=== PATIENT | male | born 1940 | race Caucasian/White ===

== ENCOUNTER 2017-01-12 11:00 | Inpatient (IN) ==
[2017-01-12 11:17] LABS: BASOPHILS # (AUTO) 0.1 K/uL (0-0.2); BASOPHILS % (AUTO) 1.8 % (0.0-3.0); EOSINOPHILS # (AUTO) 0.2 K/ul (0.0-0.7); EOSINOPHILS % (AUTO) 3.1 % (0.0-7.0); HEMATOCRIT 46.7 % (42.0-52.0); HEMOGLOBIN 16.2 g/dl (14.0-18.0); IMMATURE GRANULOCYTE % (AUTO) 0.3 % (0.0-5.0); LYMPHOCYTES # (AUTO) 1.3 K/uL (0.60-3.4); LYMPHOCYTES % (AUTO) 20.5 (10.0-50.0); MEAN CORPUSCULAR HEMOGLOBIN 29.6 pg (27.0-31.0); MEAN CORPUSCULAR HGB CONC 34.7 (31.8-35.4); MEAN CORPUSCULAR VOLUME 85.4 fl (80.0-94.0); MONOCYTES # (AUTO) 0.5 K/uL (0.4-2.0); MONOCYTES % (AUTO) 8.5 (0-10); NEUTROPHILS % (AUTO) 65.8; PLATELET COUNT 179 10^3/uL (140-440); RED BLOOD COUNT 5.47 10^6/ul (4.70-6.10); WHITE BLOOD COUNT 6.11 K/ul (4.2-10.2)
--- NOTE | 2017-01-12 11:35 | DI ---
EXAMINATION: AP chest radiograph. HISTORY: Chest pain COMPARISON: None available FINDINGS: No focal consolidation, pleural effusion or pneumothorax is identified. There is minimal left basila r atelectasis or scarring. The cardiomediastinal silhouette is within normal limits. There is calcified atherosclerotic plaque of the aorta. There is dextrocurvature of the thoracic spine. IMPRESSION: No acute cardiopulmonary findings.
--- NOTE | 2017-01-12 11:46 | CT ---
EXAM: CT of the head without contrast. HISTORY: Acute cerebrovascular accident. COMPARISON: 01/29/2011. TECHNIQUE: Noncontrast CT of the head. FINDINGS: No intracranial hemorrhage or mass effect is identified. There is mild to moderate prominence of the sulci. The ventricles are normal in size and configuration. Mild bicerebral periventricular, subc ortical and deep white matter hypodensities are again seen. No large area of moore white matter diffe rentiation loss is seen to suggest an acute infarct. Intracranial calcified atherosclerotic plaque i s seen The calvarium is intact. There is complete opacification of the right maxillary and right frontal si nuses. There is opacification of the right anterior ethmoid air cells. A left maxillary sinus muco us retention cyst or polyp is present. IMPRESSION: No evidence of an acute intracranial process. Atrophy, chronic small vessel ischemic changes and atherosclerosis. Complete opacification of the right maxillary sinus, right frontal sinus and right anterior ethmoid air cells.
[2017-01-12 11:53] LABS: ALANINE AMINOTRANSFERASE 70 U/L (12-78); ALBUMIN 3.7 g/dL (3.4-5.0); ALBUMIN/GLOBULIN RATIO 1.03; ALKALINE PHOSPHATASE 147 U/L (56-119); ANION GAP 11.5; ASPARTATE AMINO TRANSFERASE 36 U/L (15-37); BILIRUBIN,TOTAL 0.94 mg/dL (0.00-1.20); BLOOD UREA NITROGEN 12 mg/dL (7-18); BUN/CREATININE RATIO 11.42; CALCIUM 8.8 mg/dL (8.2-10.2); CARBON DIOXIDE 26 mmol/L (23-31); CHLORIDE 103 mmol/L (98-107); CREATINE KINASE 47 U/L; CREATININE 1.05 mg/dL (0.60-1.10); GLUCOSE 136 mg/dL (82-115); POTASSIUM 4.5 mmol/L (3.5-5.1); SODIUM 136 mmol/L (136-145); TOTAL PROTEIN 7.3 g/dL (5.8-8.1)
[2017-01-12] MEDS ORDERED: DECADRON 4 MG/ML SDV 4 MG in SODIUM CHLORIDE 50 ML IV STA (12:47)
[2017-01-12] MEDS ORDERED: DECADRON 4 MG/ML SDV IM STA (12:52)
--- NOTE | 2017-01-12 13:18 | ED.PDOC ---
General ED Provider: Dr. DAVE AVILES JR Chief Complaint: Stroke Stated Complaint: 2 weeks periods confusion--unsteady at times--drooping of rt lip and eye--lives alone --falls lately-- alert--clear, appropriate--moving all limbs...difficult to awaken this am-- dizzy-- back pain worsening--walking difficult[End]99.0 89 20 98% 189/78 12/10 Time Seen by Physician: 17:12 Mode of Arrival: Stretcher Information Source: Patient, Family Exam Limitations: No limitations, Dementia Primary Care Provider: TODD BIGGS Nursing and Triage Documentation Reviewed and Agree: No Review of Systems - Review Of Systems Constitutional: Reports: Fever, Malaise Eyes: Reports: Vision change, Inflammation Ears, Nose, Mouth, Throat: Reports: No symptoms Respiratory: Reports: No symptoms Cardiac: Reports: No symptoms GI: Reports: No symptoms : Reports: No symptoms Musculoskeletal: Reports: No symptoms Skin: Reports: No symptoms Neurological: Reports: Cognitive dysfunction Endocrine: Reports: No symptoms Hematologic/Lymphatic: Reports: No symptoms All Other Systems: Other Past Medical History - Past Medical History Endocrine: Reports: None Cardiovascular: Reports: CAD, Hypertension Respiratory: Reports: None Hematological: Reports: None Gastrointestinal: Reports: None Genitourinary: Reports: None Neuro/Psych: Reports: CVA Musculoskeletal: Reports: Arthritis Cancer: Reports: None - Surgical History General Surgical History: Reports: Stent ( cardiac) - Family History Family History: Reports: Unknown - Social History Smoking Status: Former smoker Hx Substance Use: No Alcohol Screening: None Physical Exam - Physical Exam Appearance: Well-appearing, Thin Pain Distress: Mild Eyes: JANIYA, EOMI, Conjunctiva clear ENT: Ears normal, Nose normal, Oropharynx normal Neck: Supple Respiratory: Airway patent, Breath sounds clear, Breath sounds equal, Respirations nonlabored Cardiovascular: RRR, Pulses normal, No rub, No murmur GI/: Soft, Nontender, No masses, Bowel sounds normal, No Organomegaly Musculoskeletal: Normal strength, ROM intact, No edema, No calf tenderness Skin: Warm, Dry, Normal color Neurological: CN Palsy (7th nerve face flat over forehead right facial droop) Critical Care Note - Critical Care Note Total Time (mins): 20 Course - Course Hematology/Chemistry: 01/12/17 11:13 01/12/17 11:13 Orders, Labs, Meds: Lab Review 01/12/17 11:13 WBC 6.11 RBC 5.47 Hgb 16.2 Hct 46.7 MCV 85.4 MCH 29.6 MCHC 34.7 RDW Coeff of Nelson 13.1 Plt Count 179 Immature Gran % (Auto) 0.3 Neut % (Auto) 65.8 Lymph % (Auto) 20.5 [place] % (Auto) 8.5 Eos % (Auto) 3.1 Baso % (Auto) 1.8 Immature Gran # (Auto) 0.0 Neut # 4.0 Lymph # 1.3 [place] # 0.5 Eos # 0.2 Baso # 0.1 D-Dimer 0.70 Sodium 136 Potassium 4.5 Chloride 103 Carbon Dioxide 26 Anion Gap 11.5 BUN 12 Creatinine 1.05 Estimated GFR (MDRD) 68.00 BUN/Creatinine Ratio 11.42 Glucose 136 H Calcium 8.8 Total Bilirubin 0.94 AST 36 ALT 70 Alkaline Phosphatase 147 H Total Creatine Kinase 47 Troponin I < 0.0100 B-Natriuretic Peptide 39 Total Protein 7.3 Albumin 3.7 Globulin 3.6 Albumin/Globulin Ratio 1.03 Orders Category Date Time Status EKG-(ED ONLY) Stat CARDIO 01/12/17 11:05 Completed B-TYPE NATRIURETIC PEPTIDE Stat LAB 01/12/17 11:13 Completed CBC W/ AUTO DIFF Stat LAB 01/12/17 11:13 Completed COMPREHENSIVE METABOLIC PANEL Stat LAB 01/12/17 11:13 Completed CREATINE KINASE Stat LAB 01/12/17 11:13 Completed D-DIMER Stat LAB 01/12/17 11:13 Completed TROPONIN I Stat LAB 01/12/17 11:13 Completed Dexamethasone 4 mg/ml Inj [Decadron 4 mg/ml Sdv] MEDS 01/12/17 12:52 Discontinued 4 mg IM ONCE STA Dexamethasone 4 mg/ml Inj [Decadron 4 mg/ml Sdv] 4 mg MEDS 01/12/17 12:47 Discontinued 0.9 % Sodium Chloride [Sodium Chloride] 50 ml IV ONCE CHEST, 1V AP ONLY Stat RADS 01/12/17 11:[address] HEAD W/O CONTRAST Stat RADS 01/12/17 11:05 Completed Medications Discontinued Medications Generic Name Dose Route Start Last Admin Trade Name Freq PRN Reason Stop Dose Admin Dexamethasone Sodium Phosphate 4 mg 01/12/17 12:52 01/12/17 13:01 Decadron 4 Mg/Ml Sdv IM 01/12/17 12:53 4 mg ONCE STA Administration Dexamethasone Sodium Phosphate 51 mls @ 75 mls/hr 01/12/17 12:47 01/12/17 13: 11 4 mg/ Sodium Chloride IV 01/12/17 13:28 Not Given ONCE STA Vital Signs: Temp Pulse Resp BP Pulse Ox 01/12/17 11:01 99 F 89 20 189/78 H 98 Departure - Departure Time of Disposition: 13:00 Disposition: ADMITTED INPATIENT Discharge Problem: Mcneil's palsy Sinusitis Qualifiers: Sinusitis location: pansinusitis Chronicity: acute Recurrence: not specified as recurrent Qualifier Code: (J01.40) Acute pansinusitis, unspecified Condition: Stable Pt referred to PMD for follow-up: Yes (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
[2017-01-12] MEDS ORDERED: ROCEPHIN 1 GM in SODIUM CHLORIDE 100 ML IV STA (13:31)
[2017-01-12 14:58] VITALS: BMI 30.3
[2017-01-12] MEDS: SODIUM CHLORIDE 1,000 ML IV SCH (15:29)
[2017-01-12] MEDS: ARICEPT PO SCH (15:43)
[2017-01-12] MEDS: CLARITIN PO SCH (15:43)
[2017-01-12] MEDS: ZESTRIL PO SCH (15:43)
[2017-01-12] MEDS: ROCEPHIN 1 GM in SODIUM CHLORIDE 100 ML IV SCH (16:46)
[2017-01-12] MEDS: TOBREX 0.3% OP SCH ×2 (16:46→20:17)
--- NOTE | 2017-01-12 17:13 | US ---
EXAM: Carotid ultrasound HISTORY: Right-sided facial drooping, confusion, hypertension COMPARISON: None TECHNIQUE: Carotid ultrasound was performed using moore scale, color, and Doppler imaging was perfor med. FINDINGS: Right carotid: There is mild atherosclerotic plaque with visual estimate of narrowing less than 50% . Peak systolic velocity measurement in the right internal carotid artery is 1.5 meters per second. End-diastolic velocity measurement in the right internal carotid artery is 0.1 meters per second. Right internal to common carotid artery peak systolic velocity ratio is 1.5. Flow in the right frida tebral artery is antegrade. Left carotid: There is mild atherosclerotic plaque with visual estimate of narrowing less than 50%. Peak systolic velocity measurement in the left internal carotid artery is 1.2 meters per second. End-diastolic velocity measurement in the left internal carotid artery is 0.2 meters per second. Le ft internal to common carotid artery peak systolic velocity ratio measures 1.1. Flow in the left ve rtebral artery is antegrade. IMPRESSION: 1. Right internal carotid: Probably mild (less than 50%) stenosis. Peak systolic velocity correspond s with low moderate (50 - 69%) stenosis; however, visual estimate of narrowing is less than 50% 2. Left internal carotid: Mild (less than 50%) stenosis
[2017-01-12] MEDS ORDERED: CATAPRES PO STA (18:19)
[2017-01-12] MEDS ORDERED: CATAPRES PO PRN (18:20)
[2017-01-12] MEDS: HYDROCORTISONE 1% CREAM TP SCH (20:17)
[2017-01-13 05:55] LABS: BASOPHILS # (AUTO) 0.1 K/uL (0-0.2); BASOPHILS % (AUTO) 1.2 % (0.0-3.0); EOSINOPHILS # (AUTO) 0.2 K/ul (0.0-0.7); HEMOGLOBIN 14.9 g/dl (14.0-18.0); IMMATURE GRANULOCYTE % (AUTO) 0.5 % (0.0-5.0); LYMPHOCYTES # (AUTO) 2.1 K/uL (0.60-3.4); LYMPHOCYTES % (AUTO) 25.7 (10.0-50.0); MEAN CORPUSCULAR HEMOGLOBIN 29.7 pg (27.0-31.0); MEAN CORPUSCULAR HGB CONC 34.7 (31.8-35.4); MEAN CORPUSCULAR VOLUME 85.7 fl (80.0-94.0); MONOCYTES # (AUTO) 0.7 K/uL (0.4-2.0); MONOCYTES % (AUTO) 8.7 (0-10); NEUTROPHILS % (AUTO) 61.9; PLATELET COUNT 183 10^3/uL (140-440); RED BLOOD COUNT 5.02 10^6/ul (4.70-6.10); WHITE BLOOD COUNT 8.03 K/ul (4.2-10.2)
[2017-01-13 06:13] LABS: ALBUMIN 3.2 g/dL (3.4-5.0); ALBUMIN/GLOBULIN RATIO 1.03; ANION GAP 7.4; BILIRUBIN,TOTAL 0.8 mg/dL (0.00-1.20); BUN/CREATININE RATIO 13.95; CALCIUM 8.5 mg/dL (8.2-10.2); CREATININE 0.86 mg/dL (0.60-1.10); POTASSIUM 4.4 mmol/L (3.5-5.1); TOTAL PROTEIN 6.3 g/dL (5.8-8.1)
[2017-01-13] MEDS: SODIUM CHLORIDE 1,000 ML IV SCH ×2 (07:02→23:22)
--- NOTE | 2017-01-13 08:44 | HP ---
DATE OF SERVICE: 01/12/17 REASON FOR HOSPITALIZATION: Weakness and the facial droopiness. HISTORY OF PRESENT ILLNESS: The patient is a 76 year old male who lives by himself at home and the family checks on him. For the last one week he is becoming more weak, tired, slurry and the confusion not by himself and more frequent falls and today when family members went and saw the patient, patient has the right facial droopiness and the right eye was red. They were worried about the stroke and brought the patient to the emergency room. The patient was seen by Dr. Soriano in the emergency room. Blood pressure 189/78. Labs were normal, D-dimer and regular blood work. Sugars were 136. CT of the head did not show any stroke, atrophy, chronic small vessel and completion of the right maxillary sinus and right frontal sinusitis and right anterior ethmoid sinusitis. Chest x-ray was done and no acute pulmonary process. At that time the patient is admitted to the hospital with the right sided [place] Palsy, acute sinusitis and otitis media on the right side, failure to thrive at home and worsening Alzheimer's dementia. REVIEW OF SYSTEMS: CONSTITUTIONAL: No night sweats. Weakness and tiredness. No fever or chills. HEENT: Eyes: No visual changes. No eye pain. No eye discharge. ENT: Right ear pain. No runny nose. No epistaxis. No sinus pain. No sore throat. No odynophagia. No ear pain. No congestion. RESPIRATORY: No cough, no congestion. No hemoptysis. CARDIOVASCULAR: No angina symptoms. No CHF symptoms. No atypical chest pain for CAD. No palpitations. No shortness of breath. GASTROINTESTINAL: No abdominal pain. No nausea or vomiting. No diarrhea or constipation. No hematemesis. No hematochezia. GENITOURINARY: No urgency. No frequency. No dysuria. No hematuria. No obstructive symptoms. No discharge. No pain. No significant abnormal bleeding. MUSCULOSKELETAL: No musculoskeletal pain. No joint swelling. No arthritis. Lower back pain, chronic NEUROLOGICAL: No headache. No neck pain. No syncope. No seizures. No dizziness. More forgetfulness. PSYCHIATRIC: Not anxious. No depression. No suicidal thoughts. No homicidal thoughts. SKIN: No rash. No lesions. No wounds. ENDOCRINE: No unexplained weight loss. No weight gain. HEMATOLOGIC/LYMPHATIC: No anemia. No purpura. No petechiae. No prolonged or excessive bleeding. No palpable lymph nodes. PERSONAL/FAMILY/SOCIAL HISTORY: The patient does live by himself. Smokes. No alcohol and no drugs. Family history is not significant PAST MEDICAL/SURGICAL PROBLEMS: Hypertension Alzheimer's dementia Chronic back pains, never had any surgery Coronary artery disease Status post stent CVA Diabetes mellitus, type 2 Diet control MEDICATIONS: No home medications. ALLERGIES: No known allergies PHYSICAL EXAMINATION: VITAL SIGNS: Blood pressure 189/78, respiratory rate 20, heart rate 89, temperature 99.0 and saturation 98% on the room air. HEENT: Head normocephalic, atraumatic. Right facial droop. Eyes: Right lower eye is drooped and red. Reactive to light. Extraocular muscles are intact. Pupils are equal, round and reactive to light and accommodation. Ears: Right tegmen is red and bulged tympanic membrane. Frontal sinus tenderness. No lesions. Nose appeared normal. Throat: No exudate or erythema. Mucosa dry. NECK: Supple. No JVD, no carotid bruit. No lymphadenopathy or thyromegaly. LUNGS: Bilateral entry is decreased and clear to auscultation. Percussion note normal. Chest symmetrical. HEART: S1, S2, no S3. No murmurs. No cyanosis or clubbing. No ascites. Pulses: Dorsalis pedis and posterior tibial pulses +1 to +2 both sides. ABDOMEN: Soft. Nontender. Bowel sounds active. No CVA tenderness. No mass felt. EXTREMITIES: No edema. Full range of motion of all extremities, equal. NEUROLOGIC: No focal deficit. Cranial nerves II through XII are grossly intact. No headache, no double vision or headache. The patient is awake, alert and oriented times three. SKIN: Not dry. Intact. Turgor - normal. LYMPHATIC: No palpable lymph nodes/no lymphedema. MUSCULOSKELETAL: Normal joints with no swelling. Muscle tone is normal. LABS: Normal except for the glucose is 136. Alkaline phosphatase is 147. ASSESSMENT: 1. Right facial droop, Mcneil's Palsy 2. Acute sinusitis and otitis media 3. Hypertension 4. Alzheimer's Dementia 5. Failure to thrive. PLAN: 1. Admit patient to the regular floor 2. CBC and CMP today and daily 3. Cardiac enzymes and Troponin 4. Rocephin 1 gram daily 5. Lisinopril 20mg PO daily 6. Aricept 10mg PO daily 7. Carotid Ultrasounds 8. MRI of the brain Will follow the patient in daily rounds. TIME SPENT: More than 55 minutes. MTDD
[2017-01-13] MEDS ORDERED: DECADRON 4 MG/ML SDV IM STA (09:04)
[2017-01-13] MEDS ORDERED: ATIVAN IVP STA (09:05)
[2017-01-13] MEDS ORDERED: DEMEROL 25 MG/ML SYRINGE IVP STA (09:21)
[2017-01-13] MEDS: TOBREX 0.3% OP SCH ×3 (09:44→20:45)
[2017-01-13] MEDS: CLARITIN PO SCH (09:45)
[2017-01-13] MEDS: ARICEPT PO SCH (09:45)
[2017-01-13] MEDS: ZESTRIL PO SCH (09:46)
--- NOTE | 2017-01-13 10:04 | PCM.PROG ---
Attending Provider: ATTENDING PROVIDER: Dr. JUDITH JAFFE DATE OF SERVICE: 01/13/17 SUBJECTIVE: This 76 year old WHITE/ M was hospitalized 01/12/17. The patient is admitted with Mcneil's Palsy, worsening dementia, failure to thrive and hypertension. The patient is complaining of lower back pain. REVIEW OF SYSTEMS: CONSTITUTIONAL: No fever, no chills. ENDOCRINE: No weight loss or weight gain. HEENT: Sinus drainage; right eye redness is better. No sore throat. CVS: No angina symptoms. No CHF symptoms. No palpitations. No atypical chest pain for CAD. No shortness of breath. RESPIRATORY: No cough, no hemoptysis. GI: No melena. No abdominal pain. No nausea, no vomiting. : No hematuria. No polyuria. SKIN: No rash. No wounds. MUSCULOSKELETAL: No pain. 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 No headache. No double vision. PSYCHIATRIC: Not anxious; no depression. No suicidal thoughts. No homicidal thoughts. PHYSICAL EXAMINATION: GENERAL: Lying in bed in no distress. VITAL SIGNS: Temperature 97.4 F, Pulse 55, Respiratory Rate 16, BP 132/78, Pulse Ox 97% HEENT: Right facial droop/weakness is present. Mucosa is dry, pallor positive. Hard of hearing. NECK: No JVP, no carotid bruit. No lymphadenopathy. CARDIAC: S1, S2, no S3. No murmur, gallop or regurgitation. LUNGS: Clear to auscultation. ABDOMEN: Soft, non-tender. Bowel sounds active. No rigidity, guarding or CVA tenderness. EXTREMITIES: No clubbing, cyanosis or edema. NEUROLOGIC: Awake, alert and oriented x3. No neurological deficit. Right facial droop is present. LYMPHATIC: No palpable lymph nodes SKIN: Not dry. Intact. MUSCULOSKELETAL: No joint swelling. LAB REVIEW: 01/13/17 05:15 01/13/17 05:15 01/13/17 05:15: WBC 8.03, RBC 5.02, Hgb 14.9, Hct 43.0, MCV 85.7, MCH 29.7, MCHC 34.7, RDW Coeff of Nelson 13.0, Plt Count 183, Immature Gran % (Auto) 0.5, Neut % (Auto) 61.9, Lymph % (Auto) 25.7, [place] % (Auto) 8.7, Eos % (Auto) 2.0, Baso % (Auto) 1.2, Immature Gran # (Auto) 0.0, Neut # 5.0, Lymph # 2.1, [place] # 0.7, Eos # 0.2, Baso # 0.1, Sodium 135 L, Potassium 4.4, Chloride 106, Carbon Dioxide 26, Anion Gap 7.4, BUN 12, Creatinine 0.86, Estimated GFR (MDRD) 86.00, BUN/Creatinine Ratio 13.95, Glucose 107, Calcium 8.5, Total Bilirubin 0.80, AST 26, ALT 55, Alkaline Phosphatase 120 H D, Total Protein 6.3, Albumin 3.2 L, Globulin 3.1, Albumin/Globulin Ratio 1.03 ASSESSMENT: 1. Mcneil's Palsy 2. Otitiis media 3. Acute frontal sinusitis right side 4. Hard of hearing 5. Lower back pain 6. Alzheimer's dementia 7. Hypertension PLAN: 1. 1 cc Decadron today 2. Continue Rocephin 3. PT/OT evaluate and treat 4. CT scan of the lumbar spine 5. Demerol 25 mg IV 6. Ativan 0.5 mg IV now Plan and coordination of the patient's care discussed in the presence of Mechanical Insulator and nurse. CONDITION: Stable SCRIBED BY: ALBERT ANDREWS Member Service Representative scribed while in presence of service performed by Dr. JUDITH JAFFE on 01/13/17 (1729)
--- NOTE | 2017-01-13 10:05 | RS.OTINEVL ---
Subjective - Patient information Date of Evaluation: 01/13/17 Date of Arrival on Unit: 01/12/17 Admitted From:: Home Usual Living Arrangement: Alone Living Arrangement Comments: Pt lives alone. Daughters brought him to the ER with a Rollator walker. Pt takes a chair bath due to not being able to get on and off the transfer bath bench. Pt is maximum assist for BLE dressing. Home Environment: House, Stairs (few) Medical History: Hypertension, CVA/TIA, Dementia, Arthritis Medical History Comments:: 2 CVA's. Last one in January 2011. 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 Pt was able to transfer in and out of car. Pt used a rollator walker. Current Level of Function: Partially Dependent Current Equipment Used at Home: rollator Interventions - Objective Patient Orientation: Person, Place, Situation Current Interventions: IV's Observation: Pt has Right side weakness a facial droop. 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 Patient presents with extra wide gait pattern at times. Pt is flexed at hips when walking. Interventions - ROM Right Upper Extremity AROM: WFL's Left Upper Extremity AROM: WFL's - Strength Right Upper Extremity Strength: Mild Weakness Left Upper Extremity Strength: Mild Weakness - Sensation Right Upper Extremity Sensation: Intact/Normal Left Upper Extremity Sensation: Intact/Normal Balance - Sitting Balance Static Sitting Balance: Good Dynamic Sitting Balance: Good - Standing Balance Static Standing Balance: Fair Dynamic Standing Balance: Poor - Comments Balance Assessment Comments: Patient has difficult standing up straight. ADL Skills - Self Feeding Self Feeding: Independent - Grooming Grooming: Min Assist - Bathing Bathing UE: Mod Assist Bathing LE: Max Assist - Dressing Dressing UE: CGA Dressing LE: Max Assist, 1 person assist - Toilet Management Toileting Management: Mod Assist, 2 person assist Functional Mobility - Bed Mobility Rolling R/L: Independent Scooting: Independent Supine to Sit: Mod Assist Sit to Supine: CGA - Transfers Sit to Stand: Mod Assist, 2 person assist Stand to Sit: Mod Assist, 2 person assist Stand Pivot Transfers: Mod Assist, 2 person assist - Ambulation Weight Bearing Status: FWB Assistive Device Used: Rollator Assistance needed with Ambulation: Mod Assist, 2 person assist - Safety Awareness Safety Awareness: Poor Additional Treatment Performed - Additional units charged ADL: 15 - Time with patient Total treatment time: 30 Activities Patient Interests:: Watching Television Patient Education Patient Education: Education of diagnosis, Home Safety, Education of Plan of Care Teaching Recipient: Patient, Family Teaching Methods: Discussion Assessment Problem List:: Decreased level of function, Requires training/education, Decreased safety/Risk of falls, Weakness, Pain limits previous level of function Rehab Potential: Good Further Therapy Indicated?: Yes Short Term Goals - Goals GOAL 1: Patient to increase functional transfers to CGA with rollator walker. Goal to be met by: 01/20/17 GOAL 2: Pt to increase RUE strength to 4/5 Goal to be met by: 01/20/17 GOAL 3: Pt to increase independence of LB dressing to minimal assistance. Goal to be met by: 01/20/17 Oven Operator Automatic Goals GOAL 1: Pt to increase Functional transfers with Rollator walker to be Mod-I Goal to be met by: 01/27/17 GOAL 2: Pt to increase RUE strength to 4+/5. Goal to be met by: 01/27/17 GOAL 3: Pt to be independent with ADLS and home exercise program Goal to be met by: 01/27/17 Plan Plan of Care: Therapeutic EX, Neuromuscular Re-Educ, Therapeutic Activity, Self- Care/Home Management Frequency of Treatment: 1-2 X day, as tolerated Duration of Treatment: 2 Weeks Anticipated Discharge Destination: Home
[2017-01-13] MEDS: ROCEPHIN 1 GM in SODIUM CHLORIDE 100 ML IV SCH (10:44)
[2017-01-13] MEDS: HYDROCORTISONE 1% CREAM TP SCH ×2 (10:45→20:46)
--- NOTE | 2017-01-13 11:22 | CT ---
EXAM: Noncontrast CT of the lumbar spine HISTORY: Back pain, falls recently COMPARISON: 12/29/2010 radiographs TECHNIQUE: Noncontrast CT of the lumbar spine FINDINGS: The lumbar vertebral bodies are normal in height. There is mild levocurvature of the lumbar spine. No lumbar spine fractures are identified. There is 1 mm of posterior listhesis at the T12-L1 throug h L3-L4 levels. A T12 vertebral body hemangioma is present. There is partial osseous fusion of L5 and S1. There is moderate disc height loss at L4-L5 and mild disc height loss at the other lumbar l evels. Multilevel anterior osteophyte formation is present. Atherosclerotic calcifications are pre sent. T12-L1: Minimal disc bulge. Mild to moderate left facet hypertrophy. No foraminal or spinal canal s tenosis. L1-L2: Minimal disc bulge. Moderate facet and ligamentum flavum hypertrophy. Moderate bilateral f oraminal stenosis. Mild to moderate spinal canal stenosis. L2-L3: Diffuse disc bulge. Moderate facet and ligamentum flavum hypertrophy. Moderate to severe r ight and moderate left foraminal stenosis. Moderate spinal canal stenosis. L3-L4: Diffuse disc bulge. Moderate to severe right and moderate left facet hypertrophy. Mild liga mentum flavum thickening. Moderate to severe bilateral foraminal stenosis. Moderate to severe spin al canal stenosis. L4-L5: Diffuse disc osteophyte complex. Moderate facet and ligamentum flavum hypertrophy. Moderate to severe right and severe left foraminal stenosis. Mild to moderate spinal canal stenosis. L5-S1: Diffuse disc osteophyte complex. Moderate facet hypertrophy, right greater than left. Mini mal right and mild left foraminal stenosis. Minimal spinal canal stenosis. IMPRESSION: No acute osseous abnormality. Moderate multilevel degenerative disc disease and facet arthropathy. Multilevel foraminal stenosis as detailed above. Moderate to severe spinal canal stenosis at L3-L4. Moderate spinal canal stenosis at L2-L3. Mild t o moderate spinal canal stenosis at L1-L2 and L4-L5. MRI could be considered for more sensitive evaluation if clinically indicated.
--- NOTE | 2017-01-13 11:51 | MRI ---
EXAM: MRI brain without IV contrast. DATE: 01/13/2017. HISTORY: Confusion, right side facial drooping, hypertension. TECHNIQUE: Sagittal T1W, axial T2W, axial FLAIR, axial T1W, axial DWI, and coronal T2W GRE sequence s of the brain were obtained using 1.2 Bobbi magnet. No IV contrast. COMPARISON: CT head 01/12/2017. MRI brain 02 October 2009. FINDINGS: The ventricles are normal in size and configuration. Many cerebral sulci and cerebellar sulci are enlarged due to atrophy. No midline shift, mass effect or abnormal extra-axial fluid namrata ection is apparent. Areas of DWI hyperintensity within the anterior inferior aspect of the right ce rebellum along the outer cortex are suspicious for acute infarct. A 3 mm diameter, DWI B 1000 slight ly bright, ADC map bright focus on the axial image #16 is not consistent with acute infarct. No acut e hemorrhage or neoplasm is identified. Small, confluent rim of T2W/FLAIR hyperintensity is observe d in the white matter abutting each lateral ventricle. Small number of other 2-5 mm, T2W/FLAIR brig ht foci are scattered within the ch radiata and subcortical white matter bilaterally. Prominent Virchow-Imtiaz spaces are observed within each basal ganglia. Old left 2 mm lacunar infarct is seen within the left frontal ch radiata. A 4.7 mm diameter, T2W bright, T1W dark focus in the left paramidline midbrain/pontine junction is consistent with an old infarct. The moore - white matter di fferentiation is normal. Areas of T2W GRE dark signal along the falx cerebrum superiorly correspond with calcifications on the recent CT scan. The 7th/8th cranial nerve complexes, cerebellopontine a ngles, and visible cervical spinal cord are normal. There is no cerebellar tonsillar ectopia. The pituitary gland is small in size , with CSF filling part of the pituitary fossa. Corpus callosum is normal in size and configuration. Vertebrobasilar system is tortuous. Flow voids are present in t he major intracranial arteries and in the dural venous sinuses. No aneurysm, AVM or dural venous si nus thrombosis is apparent. No orbit abnormality is identified. The mastoid air cells are unremark able. There is total opacification of the right maxillary sinus, several anterior right ethmoid air cells and the right frontoethmoidal recess. Small retention cyst (14 mm) is detected in the anterio r inferior left maxillary sinus. No neck mass or lymphadenopathy is detected. No calvarial neoplasm or acute fracture is evident. C1-2 arthritis is noted on sagittal sequence. IMPRESSIONS: 1. Acute, non-hemorrhagic right cerebellar infarct. 2. 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 3. No acute hemorrhage, neoplasm or hydrocephalus. 4. Mild cerebral small vessel disease. 5. Mild cerebral and cerebellar atrophy. 6. Small pituitary gland. Critical result: Report called to nguyen nurse at 1141 hrs, 01/13/2017. The nurses indicated she will inform the ordering physician of the findings.
--- NOTE | 2017-01-13 15:11 | RS.PTINEVL ---
Subjective - Patient information Date of Evaluation: 01/13/17 Date of Arrival on Unit: 01/12/17 Admitted From:: Emergency Dept Usual Living Arrangement: Alone Home Environment: House, Stairs (few) (to get into home) Medical History: Hypertension, CVA/TIA (X2, most recent 2010), Arthritis LATEX ALLERGY?: No Subjective Information/ Patient Comments:: Patient reports his back does not hurt too bad. States his eye is a little better. Family states he reports a lot of back pain at home, and he is not telling staff when he hurts. He uses a rollator at home. - Level of function Prior to this admission, the patient could do the following:: Independent Selfcare, Independent ADL's, Independent Ambulation, Participated in Social Activities Outside home Current Level of Function: Partially Dependent Current Equipment Used at Home: rollator Interventions - Objective Patient Orientation: Person, Place, Time, Situation Current Interventions: IV's Range of Motion - ROM Comments:: Patient demonstrates forward flexed spine and hips. Demonstrates tight hip flexors and ER's bilaterally. Muscle Strength - Muscle Strength Right Lower Extremity Strength: Mild Weakness Left Lower Extremity Strength: Mild Weakness Balance - Sitting Balance and Reactions Static Sitting Balance: Good Dynamic Sitting Balance: Fair - Standing Balance and Reactions Static Standing Balance: Good (-) Dynamic Standing Balance: Fair (+) Functional Mobility - Bed Mobility Supine to Sit: Min Assist, 2 person assist, Verbal Cues, Tactile Cues Sit to Supine: Min Assist, 2 person assist, Verbal Cues, Tactile Cues - Transfers Sit to Stand: Mod Assist, 1 person assist Stand to Sit: Min Assist, Mod Assist, 2 person assist Stand Pivot Transfers: Min Assist, Mod Assist, 2 person assist Comments:: To stand up, patient crosses left foot in behind the right and uses arms to push himself up. - Safety Awareness Safety Awareness: Poor Ambulation - Ambulation Weight Bearing Status: FWB Assistive Device Used: Rollator Distance: 100 feet Assistance needed with Ambulation: Min Assist, 2 person assist, Verbal Cues, Tactile Cues Gait Deviations: Narrow Based gait, Shuffling gait, Lacks step continuity Factors Affecting Ambulation: Decreased Balance, Weakness, Decreased ROM, Decreased Safety, Cognitive Status Treatment time - Time with patient Total treatment time: 17 (mins) Assessment - Assessment Problem List:: Decreased level of function, Requires training/education, Decreased safety/Risk of falls, Weakness, Cognitive status limits abilities Rehab Potential: Good Further Therapy Indicated?: Yes Short Term Goals GOAL #1: Supine to sit with CGA of one. Goal to be met by: 01/16/17 GOAL #2: Sit to stand with CGA of one. Goal to be met by: 01/16/17 GOAL #3: Ambulation with consistent foot clearance with rollator and CGA of 1. Goal to be met by: 01/16/17 [facility]cc Goals GOAL #1: All bed mobility independent. Goal to be met by: 01/19/17 GOAL #2: All transfers independent with good safety. Goal to be met by: 01/19/17 GOAL #3: Amb. with rollator household distances with good safety, Independent. Goal to be met by: 01/19/17 Plan Plan of Care: Therapeutic EX, Neuromuscular Re-Educ, Therapeutic Activity, Self- Care/Home Management Frequency of Treatment: 1-2 X day, as tolerated Duration of Treatment: 4-5 days Anticipated Discharge Destination: Home
--- NOTE | 2017-01-13 18:58 | CT ---
EXAM: CTA of the neck was performed with contrast. The intracranial circulation was also included i n the imaging volume and is described below. TECHNIQUE: Helical axial CTA of the neck was performed with contrast with multiplanar reconstructio ns and separate work station 3-D renderings. COMPARISON: Brain MRI from same day HISTORY: Right cerebellar stroke FINDINGS: There is no acute soft tissue abnormality. There are no neck masses or pathologic lymph no hollie. The thyroid gland is unremarkable. The lung apices and upper mediastinum are normal. There is e vidence of old granulomatous disease. There is noted to be complete opacification of the maxillary s inus on the right side. The visualized intracranial contents are unremarkable. The previously note d right cerebellar stroke as not visible on the CT. Aorta: The visualized portion of the aorta is normal with normal takeoff of the great vessels. Ther e is very extensive calcific atherosclerosis noted however. Right carotid artery: The origin of the right carotid artery off of the brachiocephalic is widely p atent. The right common carotid artery as well as the right carotid bifurcation and the cervical ri ght internal carotid artery are all widely patent. There is trace non stenotic calcific atherosclero sis of the right carotid bifurcation. There is no evidence for aneurysm or focal stenosis or dissec tion. Right vertebral artery: There does appear to be a modest narrowing of the origin of the right verte bral artery. The course of the right vertebral artery in the neck is normal with no focal stenosis or dissection or aneurysm. Left carotid artery: The origin of the left carotid artery off of the aortic arch is widely patent. The left common carotid artery in the neck is widely patent as is the carotid bifurcation as well as the cervical portion of the left internal carotid artery. There is no evidence for dissection or focal stenosis or aneurysm. Left vertebral artery: The origin of the left vertebral artery off of the left subclavian artery is widely patent. The course of the left vertebral artery in the neck is also unremarkable with no fo sridevi stenosis or aneurysm or dissection. The right vertebral artery is dominant. NECK CTA IMPRESSION: 1. Trace non stenotic calcific atherosclerosis of the right carotid bifurcation as described. 2. Modest narrowing of the origin of the right vertebral artery which is dominant. Given the stroke in the right cerebellar hemisphere this may be a relevant finding. The vertebral arteries are other root unremarkable and widely patent. No evidence for dissection. 3. Extensive calcific atherosclerosis of the aorta. INTRACRANIAL CIRCULATION INCLUDED IN THE IMAGING VOLUME: Right internal carotid artery distribution: The right internal carotid artery, middle cerebral arter y including the M1, M2, A1, A2 and runoff branches are widely patent. There is some mild calcific at herosclerosis of the carotid siphon which is not hemodynamically significant. Left internal carotid artery distribution: The left internal carotid artery, middle cerebral artery including the M1, M2, A1, A2 and runoff branches are widely patent. There is some mild calcific athe rosclerosis of the carotid siphon which is not hemodynamically significant. Anterior communicating artery: Patent Posterior communicating arteries: Not identified. Vertebral basilar system: The V4 segments of the vertebral arteries and the basilar artery and its b ranches are widely patent. The right vertebral artery is dominant. There is no evidence for aneurysm or vascular malformation. HEAD CTA IMPRESSION: 1. No evidence for significant stenosis or aneurysm. 2. The vertebral basilar system is widely patent. 3. Non hemodynamically significant calcific atherosclerosis of both carotid siphons.
[2017-01-14 05:35] LABS: BASOPHILS # (AUTO) 0.1 K/uL (0-0.2); BASOPHILS % (AUTO) 1.1 % (0.0-3.0); EOSINOPHILS # (AUTO) 0.1 K/ul (0.0-0.7); EOSINOPHILS % (AUTO) 1.7 % (0.0-7.0); HEMATOCRIT 43.3 % (42.0-52.0); IMMATURE GRANULOCYTE % (AUTO) 0.5 % (0.0-5.0); LYMPHOCYTES # (AUTO) 2.2 K/uL (0.60-3.4); LYMPHOCYTES % (AUTO) 26.3 (10.0-50.0); MEAN CORPUSCULAR HEMOGLOBIN 29.8 pg (27.0-31.0); MEAN CORPUSCULAR HGB CONC 34.6 (31.8-35.4); MEAN CORPUSCULAR VOLUME 86.1 fl (80.0-94.0); MONOCYTES # (AUTO) 0.6 K/uL (0.4-2.0); MONOCYTES % (AUTO) 7.6 (0-10); NEUTROPHILS # (AUTO) 5.3 K/ul (2.0-6.9); NEUTROPHILS % (AUTO) 62.8; PLATELET COUNT 196 10^3/uL (140-440); RED BLOOD COUNT 5.03 10^6/ul (4.70-6.10); WHITE BLOOD COUNT 8.41 K/ul (4.2-10.2)
[2017-01-14 06:01] LABS: ALBUMIN 3.4 g/dL (3.4-5.0); ALBUMIN/GLOBULIN RATIO 1.06; ANION GAP 10.9; BILIRUBIN,TOTAL 0.71 mg/dL (0.00-1.20); BUN/CREATININE RATIO 13.82; CALCIUM 8.5 mg/dL (8.2-10.2); CREATININE 0.94 mg/dL (0.60-1.10); POTASSIUM 3.9 mmol/L (3.5-5.1); TOTAL PROTEIN 6.6 g/dL (5.8-8.1)
[2017-01-14] MEDS: HYDROCORTISONE 1% CREAM TP SCH ×2 (09:15→20:29)
[2017-01-14] MEDS: TOBREX 0.3% OP SCH ×3 (09:15→20:32)
[2017-01-14] MEDS: ROCEPHIN 1 GM in SODIUM CHLORIDE 100 ML IV SCH (09:16)
[2017-01-14] MEDS: ZESTRIL PO SCH (09:16)
[2017-01-14] MEDS: CLARITIN PO SCH (09:17)
[2017-01-14] MEDS: ARICEPT PO SCH (09:24)
[2017-01-14 10:19] LABS: CHOL/HDL RATIO 4.4 (4.5-6.4)
[2017-01-14] MEDS: SODIUM CHLORIDE 1,000 ML IV SCH (13:44)
[2017-01-14] MEDS ORDERED: ZESTRIL PO SCH (14:34)
[2017-01-14] MEDS ORDERED: ZESTRIL PO STA (14:44)
[2017-01-14] MEDS: CALMOSEPTINE OINTMENT TP SCH ×2 (15:48→20:31)
[2017-01-14] MEDS: OMNICEF PO SCH (20:32)
[2017-01-15] MEDS: CALMOSEPTINE OINTMENT TP SCH ×2 (08:00→20:56)
[2017-01-15] MEDS: HYDROCORTISONE 1% CREAM TP SCH ×2 (08:00→20:56)
[2017-01-15] MEDS ORDERED: ZESTRIL PO SCH (09:00)
[2017-01-15] MEDS: ARICEPT PO SCH (09:31)
[2017-01-15] MEDS: CLARITIN PO SCH (09:31)
[2017-01-15] MEDS: OMNICEF PO SCH ×2 (09:31→20:55)
[2017-01-15] MEDS: TOBREX 0.3% OP SCH ×3 (09:32→20:56)
[2017-01-15] MEDS: ZESTRIL PO SCH (20:55)
[2017-01-16] MEDS: OMNICEF PO SCH (08:53)
[2017-01-16] MEDS: HYDROCORTISONE 1% CREAM TP SCH (08:54)
[2017-01-16] MEDS: CLARITIN PO SCH (08:54)
[2017-01-16] MEDS: TOBREX 0.3% OP SCH (08:54)
[2017-01-16] MEDS: ZESTRIL PO SCH (08:54)
[2017-01-16] MEDS: ARICEPT PO SCH (08:54)
[2017-01-16] MEDS: CALMOSEPTINE OINTMENT TP SCH (08:55)
[2017-01-16 09:29] VITALS: BP 161/85; TEMP 97
[2017-01-16] MEDS ORDERED: DECADRON 4 MG/ML SDV IM STA (09:47)
[2017-01-16] MEDS ORDERED: DECADRON 4 MG/ML SDV ONE (10:21)
--- NOTE | 2017-01-18 09:41 | DS ---
DATE OF SERVICE: 01/16/17 FINAL DIAGNOSIS: 1. ACUTE CEREBELLAR STROKE 2. RIGHT-SIDED LOVELL'S PALSY 3. HYPERTENSION 4. OSTEOARTHRITIS 5. ALZHEIMER'S DEMENTIA 6. HISTORY OF APPENDECTOMY 7. PATIENT CHEWS TOBACCO DISCHARGE INSTRUCTIONS: Discharge the patient home. Followup appointment in the office in 7 to 10 days. Please call for appointment date and time. MEDICATIONS AT DISCHARGE: NEW PRESCRIPTIONS: Lisinopril 40 mg twice a day Omnicef 300 mg twice a day Prednisone 10 mg twice a day Aricept 10 mg p.o. daily DIET INSTRUCTIONS: Low sodium ACTIVITY: Gradually resume activities as tolerated SMOKING: Former smoker; has quit. DISEASE SPECIFIC EDUCATION: Stroke, secondary prevention discussed; strict blood pressure control discussed. HOSPITAL COURSE: This is a 76-year-old male who lives alone at home, came to the emergency room with weakness, ataxia, lower back pain and falls. CT did not show any stroke but MRI of the brain showed right-sided cerebellar stroke. Facial droop was seen and the patient had Lovell's palsy with right-sided otitis media and sinusitis. The patient is started on Rocephin. Carotid ultrasound is negative, less than 50%. CT of the lumbar spine shows severe DJD spine. Blood pressure was high so Lisinopril 40 mg was started then will be increased. The patient's blood pressure was controlled with Lisinopril twice a day. Cholesterol panel was normal. The patient was ambulatory without any problems. CTA of the neck was done and did not show any blockages. Secondary prevention of stroke has been discussed. Lifestyle modification, weight loss discussed. Will follow with the patient in the office within 5 to 7 days. The patient and family agree to Home Health for monitoring of blood pressure, medication compliance, PT and OT in the home setting. Provider to be selected by patient and family. TIME SPENT: More than 45 to 50 minutes today. NOELD
--- NOTE | 2017-01-18 10:04 | PN ---
DATE OF SERVICE: 01/15/17 SUBJECTIVE: The patient is lying in bed not in any distress. He says he is feeling well, is ready to go home. The patient's daughter is not present today. Otherwise, he did walk in the corridor, says he is feeling better. REVIEW OF SYSTEMS: CONSTITUTIONAL: No fever, no chills. HEENT: Has right facial drooping otherwise normal. ENDOCRINE: No weight gain, no weight loss. CVS: No angina symptoms. No CHF symptoms. No palpitations. No atypical chest pain for CAD. No shortness of breath. No PND, no orthopnea. RESPIRATORY: No cough, no hemoptysis. GI: No nausea, no vomiting. No abdominal pain. : No hematuria. No polyuria. MUSCULOSKELETAL:. No joint swelling. PSYCHIATRIC: Not anxious. No depression. No suicidal thoughts. No homicidal thoughts. SKIN: Intact. No rash. PHYSICAL EXAMINATION: V/S: BP 168/85, respiratory rate 20, heart rate 22, temperature 98.4. HEENT: Right facial droop is getting better. Mucosa dry. NECK: Supple. No JVD, no carotid bruit. No lymphadenopathy. LUNGS: Clear to auscultation. No rales or rhonchi. HEART: S1, S2 normal. No S3. No murmur, gallop or regurgitation. ABDOMEN: Soft, nontender. Bowel sounds active. No rigidity. No rebound or guarding. No CVA tenderness. EXTREMITIES: No clubbing, cyanosis or pedal edema. MUSCULOSKELETAL: No joint swelling. NEUROLOGIC: Awake, alert, oriented times three. No focal deficit. LYMPHATIC: No lymph nodes palpable. SKIN: Intact. LAB DATA: White count 8.41, hemoglobin 15.0, hematocrit 43.3, platelet count 196. Sodium 137, potassium 3.9, chloride 107, bicarb 27, BUN 13, creatinine 0.94. ASSESSMENT: 1. ACUTE RIGHT CEREBELLAR INFARCT 2. RIGHT FACIAL DROOP FROM LOVELL'S PALSY 3. ALZHEIMER'S DEMENTIA 4. HYPERTENSION 5. LOWER BACK PAIN PLAN: 1. Omnicef p.o. b.i.d. 2. Donepezil 3. Lisinopril 40 mg b.i.d. 4. Out of bed to chair 5. Activity as tolerated 6. Will follow with the patient in daily rounds TIME SPENT: More than 30 minutes MTDD
--- NOTE | 2017-01-24 08:21 | PN ---
DATE OF SERVICE: 01/14/17 SUBJECTIVE: The patient was admitted with ataxia, falls and right sided facial droop. MRI showed the cerebellar stroke. He is sitting in the bed and not in any distress. He is eating food and trying to be more active. REVIEW OF SYSTEMS: CONSTITUTIONAL: No fever, no chills. HEENT: Normal. ENDOCRINE: No weight gain, no weight loss. CVS: No angina symptoms. No CHF symptoms. No palpitations. No atypical chest pain for CAD. No shortness of breath. No PND, no orthopnea. RESPIRATORY: No cough, no hemoptysis. GI: No nausea, no vomiting. No abdominal pain. : No hematuria. No polyuria. MUSCULOSKELETAL:. No joint swelling. PSYCHIATRIC: Not anxious. No depression. No suicidal thoughts. No homicidal thoughts. SKIN: Intact. No rash. PHYSICAL EXAMINATION: V/S: Blood pressure 154/93, respiratory rate 21, heart rate 61 and temperature 97. HEENT: Normocephalic, atraumatic. Ears, eyes, nose and throat normal. Mucosa dry. Right facial droop present. NECK: Supple. No JVD, no carotid bruit. No lymphadenopathy. LUNGS: Clear to auscultation. No rales or rhonchi. HEART: S1, S2 normal. No S3. No murmur, gallop or regurgitation. ABDOMEN: Soft, nontender. Bowel sounds active. No rigidity. No rebound or guarding. No CVA tenderness. EXTREMITIES: No clubbing, cyanosis or pedal edema. MUSCULOSKELETAL: No joint swelling. NEUROLOGIC: Awake, alert, oriented times three. No focal deficit. LYMPHATIC: No lymph nodes palpable. SKIN: Intact. LABS: Sodium 137, potassium 3.9, chloride 107, bicarb 23, BUN 13, creatinine 0.9, WBC 8.41, hgb 15.0, hct 43.3, plt count 196. ASSESSMENT: 1. Right cerebellar stroke 2. 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 Hypertension, uncontrolled 5. Diabetes, diet control, A1c 5.5 6. Frequent fall 7. Alzheimer's Dementia PLAN: 1. Increase Lisinopril to 40mg daily 2. Stop the IV fluids 3. Demerol PRN 4. Out of bed to chair 5. Elevate for PT/OT TIME SPENT: More than 30 minutes MTDD
== END 2017-01-16 11:35 | disposition home or self-care (01) | DRG 66 ==
LOC: ED 11:00 → MEDSURG A 13:47
PROVIDERS: ADMIT Emergency Medicine; ATTEND Emergency Medicine
DX: I63.9 Cerebral infarction, unspecified (principal); G51.0 Bell's palsy; I10 Essential (primary) hypertension; J01.40 Acute pansinusitis, unspecified; H66.90 Otitis media, unspecified, unspecified ear; R62.7 Adult failure to thrive; G30.9 Alzheimer's disease, unspecified; F02.80 Dementia in other diseases classified elsewhere, unspecified severity, without behavioral disturbance, psychotic disturbance, mood disturbance, and anxiety; R94.31 Abnormal electrocardiogram [ECG] [EKG]; M54.5 Low back pain; R41.0 Disorientation, unspecified; R29.6 Repeated falls; M19.90 Unspecified osteoarthritis, unspecified site; F17.220 Nicotine dependence, chewing tobacco, uncomplicated; H91.90 Unspecified hearing loss, unspecified ear; Z86.73 Personal history of transient ischemic attack (TIA), and cerebral infarction without residual deficits
CPT/HCPCS: 36415; 80053; 80061; 82550; 83036; 83880; 84443; 84484; 85025; 85379; 93005; 93010; 96372; 97802; 99284

== ENCOUNTER 2018-12-21 09:56 | Emergency (ER) ==
[2018-12-21 10:13] VITALS: BP 132/84; TEMP 97.7; BMI 31.7
[2018-12-21] MEDS ORDERED: SODIUM CHLORIDE 1,000 ML IV STA (10:17)
--- NOTE | 2018-12-21 10:34 | ED.PDOC ---
General ED Provider: Dr. KRISTAL MOORE Chief Complaint: Nausea/Vomiting Stated Complaint: Dizziness. Nausea and Vomiting -2 nights ago. Having upper abdominal discomfort-seems less today. Also pain in mid epigastrium. His daughter who is an RN and employed at [employer] is accompanying him and states he has been very weak and unable to get up and care for self. Apparently fell last evening 1830 to 1900. Complains of some lower abdomen and back pain. Has not been drinking and last meal was yesterday afternoon. Sustained Bilat knee abrasions. Hx CVA, 2011. Excoriation noted bilat groin areas with yellow exudate. Time Seen by Physician: 10:05 Mode of Arrival: Ambulance Information Source: Family Exam Limitations: Clinical condition Primary Care Provider: TODD FERNÁNDEZ Nursing and Triage Documentation Reviewed and Agree: Yes Does patient meet sepsis criteria?: No System Inflammatory Response Syndrome: Not Applicable Sepsis Protocol: For patient's 13 years and over: Temp is 96.8 and below OR 101 and greater Pulse >90 BPM Resp >20/minute Acutely Altered Mental Status Are patient's symptoms suggestive of a new infection, such as: -Pneumonia -Skin, Soft Tissue -Endocarditis -UTI -Bone, Joint Infection -Implantable Device -Acute Abdominal Infection -Wound Infection -Meningitis -Blood Stream Catheter Infection -Unknown Neurological Complaint Exam - Dizziness Complaint/Exam Onset: Sudden (When changing positions) Duration: short period. Symptoms Are: Resolved Timing: Intermittent Episodes Lasting: Minutes Initial Severity: Moderate Current Severity: None Character: Reports: Lightheaded Aggravating: Reports: Position change, Change in head position Alleviating: Reports: Rest, Lying down Associated Signs and Symptoms: Reports: Nausea, Vomiting Cardiac Risk Factors: Reports: Hypertension CVA Risk Factors: Reports: Hypertension, PVD Related Surgical History: Reports: None JVD Present: No Carotid Bruit Present: No Nystagmus Present: No Gag Reflex Present: No Meningeal Signs Positive: No Focal Weakness: Present: None Focal Sensory Loss: Present: None Gait: Unable Differential Diagnoses: Hypovolemia, Vasovagal reaction, Other (orthostatic dizziness) Review of Systems - Review Of Systems Constitutional: Reports: No symptoms, Weakness, Sweats, Loss of appetite Eyes: Reports: No symptoms Ears, Nose, Mouth, Throat: Reports: No symptoms Respiratory: Reports: No symptoms, Short of air Cardiac: Reports: No symptoms GI: Reports: No symptoms, Abdomen distended, Abdominal pain, Nausea, Poor appetite, Poor fluid intake, Vomiting : Reports: No symptoms Musculoskeletal: Reports: No symptoms, Back pain Skin: Reports: No symptoms Neurological: Reports: No symptoms Endocrine: Reports: No symptoms Hematologic/Lymphatic: Reports: No symptoms All Other Systems: Reviewed and Negative Past Medical History - Past Medical History Endocrine: Reports: None Cardiovascular: Reports: CAD, Hypertension Respiratory: Reports: None Hematological: Reports: None Gastrointestinal: Reports: None Genitourinary: Reports: None Neuro/Psych: Reports: CVA Musculoskeletal: Reports: Arthritis Cancer: Reports: None - Surgical History General Surgical History: Reports: Stent ( cardiac) - Family History Family History: Reports: Unknown - Social History Smoking Status: Former smoker Hx Substance Use: No Alcohol Screening: None Physical Exam - Physical Exam Appearance: Ill-appearing Ill-appearing: Moderate Pain Distress: Moderate Eyes: JANIYA, EOMI, Conjunctiva clear ENT: Ears normal, Nose normal, Oropharynx normal Neck: Supple Respiratory: Airway patent, Breath sounds clear, Breath sounds equal, Respirations nonlabored Cardiovascular: RRR, Pulses normal, No rub, No murmur GI/: Tender, Bowel sounds hypoactive Musculoskeletal: Normal strength, ROM intact, No edema, No calf tenderness Skin: Warm, Dry, Normal color Neurological: Sensation intact, Motor intact, Reflexes intact, Cranial nerves intact, Alert, Oriented Psychiatric: Affect appropriate, Mood appropriate Interpretation - Radiology Interpretation Radiology Interpretation By: ED Physician Physician Notification - Case Discussed Physician Notified: Dr Dora Dhillon - surg consut Time of Notification: 12:40 (accepted pt -direct admit to [facility]) Critical Care Note - Critical Care Note Total Time (mins): 60 Course - Course Hematology/Chemistry: 12/21/18 10:32 12/21/18 10:32 Orders, Labs, Meds: Lab Review 12/21/18 12/21/18 12/21/18 10:32 10:32 10:32 WBC 17.07 H RBC 5.99 Hgb 17.8 Hct 48.7 MCV 81.3 MCH 29.7 MCHC 36.6 H RDW Coeff of Nelson 13.2 Plt Count 183 Immature Gran % (Auto) 0.6 Neut % (Auto) 87.3 Lymph % (Auto) 4.3 L Dixon % (Auto) 7.0 Eos % (Auto) 0.4 Baso % (Auto) 0.4 Immature Gran # (Auto) 0.1 Neut # (Auto) 14.9 H Lymph # (Auto) 0.7 Dixon # (Auto) 1.2 Eos # (Auto) 0.1 Baso # (Auto) 0.1 D-Dimer (Manual) 2808.17 Sodium 123.9 L Potassium 3.91 Chloride 90.3 L Carbon Dioxide 22.0 Anion Gap 15.51 BUN 18.6 Creatinine 0.98 Estimated GFR (MDRD) 74.00 BUN/Creatinine Ratio 18.97 Glucose 195.4 H Lactic Acid Uric Acid 4.01 Calcium 8.78 Magnesium 2.25 Total Bilirubin 3.45 H AST 20.9 ALT 18.6 Alkaline Phosphatase 106.5 Total Creatine Kinase 175.3 H CK-MB (CK-2) 2.450 H CK-MB (CK-2) % 1.3900 Troponin I 0.026 Total Protein 7.20 Albumin 3.60 Globulin 3.60 Albumin/Globulin Ratio 1.00 Lipase 16.2 L Procalcitonin Influ A Molecular Assay Influ B Molecular Assay 12/21/18 12/21/18 12/21/18 10:32 10:32 10:32 WBC RBC Hgb Hct MCV MCH MCHC RDW Coeff of Nelson Plt Count Immature Gran % (Auto) Neut % (Auto) Lymph % (Auto) Dixon % (Auto) Eos % (Auto) Baso % (Auto) Immature Gran # (Auto) Neut # (Auto) Lymph # (Auto) Dixon # (Auto) Eos # (Auto) Baso # (Auto) D-Dimer (Manual) Sodium Potassium Chloride Carbon Dioxide Anion Gap BUN Creatinine Estimated GFR (MDRD) BUN/Creatinine Ratio Glucose Lactic Acid 1.61 Uric Acid Calcium Magnesium Total Bilirubin AST ALT Alkaline Phosphatase Total Creatine Kinase CK-MB (CK-2) CK-MB (CK-2) % Troponin I Total Protein Albumin Globulin Albumin/Globulin Ratio Lipase Procalcitonin 2.28 Influ A Molecular Assay Negative by naat Influ B Molecular Assay Negative by naat Orders Category Date Time Status EKG-(ED ONLY) Stat CARDIO 12/21/18 10:18 Completed INTAKE & OUTPUT Q8HR CARE 12/21/18 10:18 Active IV [ED IV/MEDIPORT/POWERPORT] .ONCE EMERGENCY 12/21/18 10:17 Active BLOOD CULTURE Stat LAB 12/21/18 11:50 Completed CBC W/ AUTO DIFF Stat LAB 12/21/18 10:32 Completed CMP [COMPREHENSIVE METABOLIC PANEL] Stat LAB 12/21/18 10:32 Completed CPK [CREATINE KINASE] Stat LAB 12/21/18 10:32 Completed D-DIMER Stat LAB 12/21/18 10:32 Completed FLU A & B MOLECULAR [FLU A/B MOLECULAR] Stat LAB 12/21/18 10:32 Completed LACTIC ACID Stat LAB 12/21/18 10:32 Completed LIPASE Stat LAB 12/21/18 10:32 Completed MAGNESIUM Stat LAB 12/21/18 10:32 Completed PROCALCITONIN Stat LAB 12/21/18 10:32 Completed TROPONIN I Stat LAB 12/21/18 10:32 Completed URIC ACID Stat LAB 12/21/18 10:32 Completed 0.9 % Sodium Chloride [Saline Flush] MEDS 12/21/18 10:18 Discontinued 1 syr IVF PRN PRN Piperacillin Sodium/Tazobactam [Zosyn 3.375 gm] 3.375 MEDS 12/21/18 12:59 Discontinued gm 0.9 % Sodium Chloride [Sodium Chloride] 50 ml IV ONCE Sodium Chloride 0.9% [Sodium Chloride] 1,000 ml MEDS 12/21/18 10:17 Discontinued IV BOLUS CHEST, 1V AP ONLY Stat RADS 12/21/18 10:[address] ABDOMEN/PELVIS WO CONTRAST Stat RADS 12/21/18 11:[address] HEAD W/O CONTRAST Stat RADS 12/21/18 10:[address] LUMBAR SPINE W/O CONTRAST Stat RADS 12/21/18 11:11 Completed ULTRASOUND DOPPLER CAROTID [U/S DOPPLER CAROTID] Stat RADS 12/21/18 10:24 Completed Medications Discontinued Medications Generic Name Dose Route Start Last Admin Trade Name Freq PRN Reason Stop Dose Admin Sodium Chloride 1,000 mls @ 500 mls/hr 12/21/18 10:17 12/21/18 10:47 Sodium Chloride IV 12/21/18 12:16 500 mls/hr BOLUS STA Administration Piperacillin Sod/Tazobactam 50 mls @ 50 mls/hr 12/21/18 12:59 12/21/18 13:13 Sod 3.375 gm/ Sodium Chloride IV 12/21/18 13:58 50 mls/hr ONCE STA Administration Sodium Chloride 1 syr 12/21/18 10:18 Saline Flush IVF PRN PRN To flush IV Vital Signs: Temp Pulse Resp BP Pulse Ox 12/21/18 09:58 97.7 F 102 H 24 132/84 96 Departure - Departure Time of Disposition: 13:45 Disposition: TSF SHORT-TRM HOSP Discharge Problem: Cholecystitis, Orthostatic dizziness Instructions: Cholecystitis (ED) Condition: Stable Pt referred to PMD for follow-up: Yes (Dr Fernández post hosp) IPMP verified?: No Allergies/Adverse Reactions: Allergies No Known Allergies Allergy (Verified 12/21/18 10:10) Home Medications: Ambulatory Orders Aspirin [Aspirin EC] 81 mg PO DAILYWM #30 tablet. 01/16/17 Amlodipine Besylate [Norvasc] 5 mg PO BEDTIME #30 tablet 01/10/19 Hydrochlorothiazide 12.5 mg PO DAILY #30 capsule 01/10/19 Losartan Potassium [Cozaar] 100 mg PO DAILY #30 tablet 01/10/19 Minoxidil 2.5 mg PO DAILY #30 tablet 01/10/19 Potassium Chloride [K-Dur] 20 meq PO DAILY #30 tab 01/10/19 Transfer Form Completed: Yes Disposition Discussed With: Patient, Family GI Complaint Exam - Abdominal Pain Complaint/Exam Onset: Sudden Duration: 1 daus Symptoms Are: Still present (but improved) Timing: Intermittent Initial Severity: Moderate Current Severity: Mild Location of Pain: RUQ, Epigastric Radiates To: Reports: Back Character: Reports: Sharp, Aching Aggravating: Reports: Movement Alleviating: Reports: None Associated Signs and Symptoms: Reports: Decreased urine output, Nausea, Vomiting AAA Risk Factors: Reports: None Cardiac Risk Factors: Reports: Hypertension Testicular Torsion Risk Factors: Reports: None Surgical Obstruction Risk Factors: Reports: None Related Surgical History: Reports: None Abdominal Findings: Present: CVA Tenderness (RT) Differential Diagnoses: Gastroenteritis, GB Quality Indicators for AMI: EKG in 10min. Additional Information: [address] Dora Dhillon who agreed to accept patient in transfer with acute cholecystitis Advise familiy of impending transfer
--- NOTE | 2018-12-21 11:42 | DI ---
EXAM: CHEST FRONTAL VIEW HISTORY: Dizziness. COMPARISON: 01/12/2017 FINDINGS: Heart size and mediastinum remain within normal limits. There is at least mild atherosc lerotic disease. No acute infiltrates are seen. No vascular congestion. There is no consolidation, visible pleural fluid or pneumothorax. Bones reveal no acute fracture. IMPRESSION: No acute cardiopulmonary process.
--- NOTE | 2018-12-21 11:53 | US ---
EXAM: ULTRASOUND CAROTID DUPLEX, BILATERAL HISTORY: Dizziness, weakness FINDINGS: Underwood-scale ultrasound, color Doppler and spectral analysis was performed. Velocities are in meters per second. By underwood scale and color Doppler imaging, there were regions of heterogeneous plaque formation identi fied within the carotid bulbs and internal carotid arteries. These regions of plaque appeared to rem ain less than 50% vessel diameter. RIGHT: External carotid artery peak systolic velocity: 1.02 Common carotid artery peak systolic velocity/end diastolic velocity: 0.66/0.07 Internal carotid artery peak systolic velocity: 0.64 ICA/CCA peak systolic velocity ratio: 1.0 ICA end diastolic velocity: 0.07 LEFT: External carotid artery peak systolic velocity: 1.09 Common carotid artery peak systolic velocity/end diastolic velocity: 0.75/0.0 Internal carotid artery peak systolic velocity: 1.14 ICA/CCA peak systolic velocity ratio: 1.5 ICA end diastolic velocity: 0.08 The right and left vertebral arteries were antegrade. IMPRESSION: 1. By underwood scale and color Doppler imaging, there were regions of heterogeneous plaque formation i dentified within the carotid bulbs and internal carotid arteries. These regions of plaque appeared t o remain less than 50% vessel diameter. 2. Internal carotid artery peak systolic velocities and ICA/CCA peak systolic velocity ratios indica te no hemodynamically significant stenosis bilaterally. 3. Both vertebral arteries were antegrade. 4. If further imaging is indicated clinically, consider CTA neck.
--- NOTE | 2018-12-21 12:10 | CT ---
EXAM: CT of the head without contrast History: Dizziness with nausea and vomiting, head trauma. Comparison: Head CT 01/12/2017 Technique: Multiplanar CT images through the head were obtained without the administration of IV con trast Findings: No change in the chronic right maxillary sinus and anterior right ethmoid air cell disease . Mastoid air cells are clear in general. No acute calvarial abnormalities. Intracranially there is stable atrophy. No midline shift and no hydrocephalus. No acute intracrania l hemorrhage or abnormal extraaxial fluid collections. No change in the periventricular and subcorti sridevi white matter hypodensities. Impression: 1. No acute intracranial process. 2. Stable chronic brain changes. 3. Stable chronic right sided sinusitis
--- NOTE | 2018-12-21 12:15 | CT ---
EXAM: CT of the abdomen pelvis without contrast History: Abdominal and pelvic trauma, back pain. Comparison: CT lumbar spine 12/21/2018 Technique: Multiplanar CT images through the abdomen pelvis were obtained without the administration of IV contrast Findings: Dependent atelectasis within the lungs. Coronary calcifications. Severe arthritis of haylee ateral hip joints. Degenerative changes of the spine. Mild circumferential wall thickening of the distal esophagus. The gallbladder is distended with lata cent inflammation and small amount of fluid within the gallbladder fossa and surrounding the liver ex tending into the right pericolic gutter. No pancreatic lesions. There is inflammation along the hollie cending duodenum and pancreatic head. Adrenal glands are unremarkable. No renal stones and no hydro nephrosis. No bowel obstruction. Bladder is moderately distended. No bladder wall thickening. Pro state is not enlarged. No perirectal inflammation. Colonic diverticulosis. No free air. Calcified granulomas within the liver and spleen. Impression: 1. Abnormally distended gallbladder with adjacent inflammation and fluid highly suspicious for acute cholecystitis. 2. Inflammation adjacent to the distal descending duodenum and pancreatic head. Correlate with panc reatic enzymes. 3. Colonic diverticulosis. 4. Coronary artery disease. 5. Mild circumferential wall thickening of the distal esophagus most compatible with esophagitis.
--- NOTE | 2018-12-21 12:19 | CT ---
EXAM: CT of the lumbar spine without contrast History: Lower back trauma. Technique: Multiplanar CT images through the lumbar spine were obtained without the administration o f IV contrast Findings: Osteopenia. No acute fracture or subluxation of the lumbar spine. Moderate to severe disc space lorenzo rowing at L5-S1. Moderate disc space narrowing seen elsewhere with large anterior osteophytes. T12-L1: No significant bony central canal stenosis or bony neural foraminal narrowing. L1-L2: Mild central canal stenosis. Moderate to severe bilateral bony neural foraminal narrowing se condary to ligamentous and facet hypertrophy. L2-L3: Moderate central canal stenosis. Severe bilateral bony neural foraminal narrowing secondary to ligamentous and facet hypertrophy. L3-L4: Mild to moderate central canal stenosis. Moderate to severe bilateral bony neural foraminal narrowing secondary to ligamentous and facet hypertrophy. L4-L5: Right paracentral posterior disc osteophyte complex with mild to moderate central canal steno sis. Severe bilateral bony neural foraminal narrowing secondary to ligamentous and facet hypertrophy . L5-S1: No significant bony central canal stenosis. Moderate to severe left and moderate right bony neural foraminal narrowing secondary to ligamentous and facet hypertrophy. Impression: 1. No acute osseous abnormality of the lumbar spine. 2. Degenerative changes with level by level analysis as detailed above
[2018-12-21] MEDS ORDERED: ZOSYN 3.375 GM 3.375 GM in SODIUM CHLORIDE 50 ML IV STA (12:59)
== END 2018-12-21 13:50 | disposition short-term general hospital (02) ==
LOC: ED 09:56
DX: K81.9 Cholecystitis, unspecified (principal); R42 Dizziness and giddiness; R53.1 Weakness; I10 Essential (primary) hypertension; M54.9 Dorsalgia, unspecified; S80.212A Abrasion, left knee, initial encounter; S80.211A Abrasion, right knee, initial encounter; W19.XXXA Unspecified fall, initial encounter; I73.9 Peripheral vascular disease, unspecified; I25.10 Atherosclerotic heart disease of native coronary artery without angina pectoris; Z86.73 Personal history of transient ischemic attack (TIA), and cerebral infarction without residual deficits; Z95.5 Presence of coronary angioplasty implant and graft; R19.7 Diarrhea, unspecified; R68.89 Other general symptoms and signs; R00.0 Tachycardia, unspecified
CPT/HCPCS: 36415; 80053; 82550; 82553; 83605; 83690; 83735; 84145; 84484; 84550; 85025; 85379; 87040; 87502; 93005; 93010; 96361; 96365; 99285

== ENCOUNTER 2018-12-21 13:57 | Outpatient (CLI) ==
[2018-12-21 10:13] VITALS: BMI 31.7
== END 2018-12-21 14:21 | disposition short-term general hospital (02) ==
LOC: AMBL 13:57
PROVIDERS: ATTEND Emergency Medicine
DX: R53.1 Weakness (principal); R11.2 Nausea with vomiting, unspecified; R50.9 Fever, unspecified; R00.0 Tachycardia, unspecified; K82.9 Disease of gallbladder, unspecified

== ENCOUNTER 2018-12-25 19:09 | Inpatient (IN) ==
[2018-12-25 20:01] VITALS: BMI 31.0
[2018-12-25] MEDS ORDERED: NORCO 5-325 PO PRN (20:40)
[2018-12-25] MEDS ORDERED: NON-FORMULARY MEDICATION (Lisinopril [Lisinopril] 20 MG) PO SCH (21:00)
[2018-12-25] MEDS ORDERED: ZESTRIL ONE (21:11)
[2018-12-25] MEDS: NYSTATIN CREAM TP SCH (21:15)
--- NOTE | 2018-12-26 08:48 | HP ---
DATE OF SERVICE: 12/25/18 REASON FOR HOSPITALIZATION/HISTORY OF PRESENT ILLNESS: This 78 year old WHITE/ M was hospitalized for physical therapy and decline in function because recent cholecystectomy preformed on 12/22/18. The patient needs gait training. He does not have any complaints. The patient has decubitus on both buttocks and a fungal infection of the skin. PAST MEDICAL HISTORY: Hypertension Coronary artery disease CVA Dementia Diabetes mellitus type 2 PAST SURGICAL HISTORY: Appendectomy Cholecystectomy Stent placement REVIEW OF SYSTEMS: CONSTITUTIONAL: No night sweats. No fatigue, malaise, lethargy. No fever or chills. HEENT: Eyes: No visual changes. No eye pain. No eye discharge. ENT: No runny nose. No epistaxis. No sinus pain. No sore throat. No odynophagia. No ear pain. No congestion. RESPIRATORY: No cough, no congestion. No hemoptysis. No shortness of breath. CARDIOVASCULAR: No angina symptoms. No CHF symptoms. No atypical chest pain for CAD. No palpitations. No PND. No orthopnea. GASTROINTESTINAL: Soreness of abdomen. No nausea or vomiting. No diarrhea or constipation. No hematemesis. No hematochezia. GENITOURINARY: No urgency. No frequency. No dysuria. No hematuria. No obstructive symptoms. No discharge. No pain. No significant abnormal bleeding. MUSCULOSKELETAL: No musculoskeletal pain. No joint swelling. No arthritis. NEUROLOGICAL: No headache. No neck pain. No syncope. No seizures. No dizziness. PSYCHIATRIC: Not anxious. No depression. No suicidal thoughts. No homicidal thoughts. SKIN: No rash. No lesions. No wounds. ENDOCRINE: No unexplained weight loss. No weight gain. HEMATOLOGIC/LYMPHATIC: No anemia. No purpura. No petechiae. No prolonged or excessive bleeding. No palpable lymph nodes. PERSONAL/FAMILY/SOCIAL HISTORY: The patient is and lives at home with help of daughter. Nonsmoker and no alcohol abuse. MEDICATIONS: Aspirin 81mg PO daily Lisinopril 20mg PO bedtime Zestril 40mg PO daily ALLERGIES: No known allergies. PHYSICAL EXAMINATION: GENERAL: The patient is alert and oriented, lying in bed in no distress. VITAL SIGNS: Temperature 98.3, pulse 65, respiratory rate 20, blood pressure 187/87 and pulse ox 96%. HEENT: Head normocephalic, atraumatic. Eyes: Extraocular muscles are intact. Pupils are equal, round and reactive to light and accommodation. Ears: No lesions. Nose appeared normal. Throat: No exudate or erythema. NECK: Supple. No JVD, no carotid bruit. No lymphadenopathy or thyromegaly. LUNGS: Clear to auscultation. Percussion note normal. Chest symmetrical. HEART: S1, S2, no S3. No murmurs. No cyanosis or clubbing. No ascites. Pulses: Dorsalis pedis and posterior tibial pulses +1 to +2 bilaterally. ABDOMEN: Soft. Nontender. Bowel sounds active. No CVA tenderness. No mass felt. couple of small incisions with sutures noted healing properly. EXTREMITIES: No edema. Full range of motion of all extremities, equal. NEUROLOGIC: No focal deficit. Cranial nerves II through XII are grossly intact. No headache, no double vision or headache. SKIN: Not dry. Intact. Turgor - normal. LYMPHATIC: No palpable lymph nodes/no lymphedema. MUSCULOSKELETAL: Normal joints with no swelling. Muscle tone is normal. ASSESSMENT: 1. Decline in function 2. Status post cholecystectomy 3. Gait training on swing bed 4. Hypokalemia PLAN: 1. K-tab 20meq three times a day 2. Monitor Potassium level 3. Hypertension systolic 187, will add Norvasc in morning and continue Zestril as before 4. Monitor fluid intake today CONDITION: Stable, good candidate for physical therapy for gait training. TIME SPENT: More than 70 minutes. MTDD
[2018-12-26] MEDS ORDERED: ZESTRIL PO SCH ×2 (09:00→21:00)
[2018-12-26] MEDS ORDERED: NORVASC PO SCH (09:00)
[2018-12-26] MEDS: K-DUR PO SCH ×3 (09:27→17:22)
[2018-12-26] MEDS: ASPIRIN EC PO SCH (09:28)
[2018-12-26] MEDS: DIFLUCAN PO SCH (09:29)
[2018-12-26] MEDS: NYSTATIN CREAM TP SCH ×2 (09:40→20:24)
--- NOTE | 2018-12-26 14:33 | RS.PTINEVL ---
Subjective - Patient information Date of Evaluation: 12/26/18 Date of Arrival on Unit: 12/25/18 Admitted From:: Facility Transfer (transfer from [facility] for swing bed) Diagnosis: s/p cholecystectomy, s/p fall at home Usual Living Arrangement: Alone Living Arrangement Comments: pt lives alone, dtr lives next door. Family is supportive. pt amb with rollator rwx, does a sponge bath at home. Home Environment: House, Stairs (few), Rail Medical History: Hypertension, CVA/TIA, Dementia, Arthritis Medical History Comments:: lumbar disc herniation LATEX ALLERGY?: No Surgical History: Cholecystectomy (cholecystectomy 12/22/18) Medications: see chart Subjective Information/ Patient Comments:: pt states that he has been weak since getting sick, states he had a fall at home. - Level of function Prior to this admission, the patient could do the following:: Independent Selfcare, Independent ADL's, Independent Ambulation, Participated in Social Activities Outside home Current Level of Function: Partially Dependent Current Equipment Used at Home: rollator walker at home and hand rails. Pain Assessement - Location abd Description: Acute Intensity: 2 Pain Behavior: Facial Grimacing Pain Aggravating Factors: Changing Position, Standing Interventions - Objective Patient Orientation: Person, Place, Time, Situation Current Interventions: IV's, Telemetry Observation: incisions to abd Range of Motion - ROM Right Upper Extremity AROM: WFL's Left Upper Extremity AROM: WFL's Right Lower Extremity AROM: Slight limitation (decreased knee ext, hip ext) Left Lower Extremity AROM: Slight limitation (decreased knee ext, hip ext) Muscle Strength - Muscle Strength Right Upper Extremity Strength: Mild Weakness (grossly 4/5) Left Upper Extremity Strength: Mild Weakness (grossly 4/5) Right Lower Extremity Strength: Mild Weakness (hip flex 4-/5, knee flex 4-/5, ext 3-/5, ankle DF/PF 4/5) Left Lower Extremity Strength: Mild Weakness (hip flex 4-/5, knee flex 4-/5, ext 3-/5, ankle DF/PF 4/5) Sensation - Sensation Right Upper Extremity Sensation: Intact/Normal Left Upper Extremity Sensation: Intact/Normal Right Lower Extremity Sensation: Impaired Left Lower Extremity Sensation: Impaired Comments: reports occasional n/t BLE Palpation Palpation Findings: Tenderness Comments:: abd Balance - Sitting Balance and Reactions Static Sitting Balance: Good Dynamic Sitting Balance: Fair Sitting Equilibrium Reactions: Delayed Left, Delayed Right Sitting Protective Reactions: Delayed Left, Delayed Right - Standing Balance and Reactions Static Standing Balance: Poor Dynamic Standing Balance: Poor Standing Equilibrium Reactions: Delayed Left, Delayed Right Standing Protective Reactions: Delayed Left, Delayed Right - Comments Balance Assessment Comments: pt with significantly flexed posture, decreased step length. Functional Mobility - Bed Mobility Rolling R/L: Min Assist Supine to Sit: Min Assist - Transfers Sit to Stand: Mod Assist, 1 person assist (with bed elevated, mod x 2 from chair ) Stand to Sit: Min Assist, 1 person assist - Safety Awareness Safety Awareness: Poor ANNALEE INDEX SCORE: 40 Ambulation - Ambulation Assistive Device Used: Rolling Walker Orthotic/Prosthetic Device: No Distance: 30ft Assistance needed with Ambulation: Min Assist, 1 person assist, 2 person assist Gait Deviations: Forward posture, Short stride Ambulation Comments: pt amb with significantly flexed posture and decreased step length. pt states he is unable to stand fully erect posture due to arthritis pain. Factors Affecting Ambulation: Decreased Balance, Pain, Weakness, Decreased Safety, Limited Endurance Treatment time - Time with patient Length of Evaluation: 25 Total treatment time: 29 Patient Education - Education Patient Education: Activity Modification, Education of Plan of Care Teaching Recipient: Patient Teaching Methods: Discussion Comments: discussion regarding POC as well as safety with gait training Assessment - Assessment Problem List:: Decreased level of function, Requires training/education, Decreased safety/Risk of falls, Weakness, Pain limits previous level of function Rehab Potential: Good Further Therapy Indicated?: Yes Candidate for Swing Bed for Therapy Services?: pt is in a swing bed. Evaluation Complexity: HISTORY: Medium (CVA, dementia, age, recent surgery), EXAM OF BODY SYSTEMS: Medium (strength, balance, posture, gait), CLINICAL PRESENTATION: Medium, CLINICAL DECISION MAKING: Medium Short Term Goals GOAL #1: pt demonstrate rolling and bridging independently with bed rails. Goal to be met by: 01/02/19 GOAL #2: Sup to/from sit min to CGA x 1 Goal to be met by: 01/02/19 GOAL #3: Sit to/from stand min x 1 from bed, chair, toilet Goal to be met by: 01/02/19 GOAL #4: pt amb with rolling walker with CGA x 1 75ft with no LOB Goal to be met by: 01/02/19 Skilled Nursing Goals GOAL #1: pt transfer sup to/from sit to/from stand SBA Goal to be met by: 01/09/19 GOAL #2: pt amb with rwx functional household distances SBA no LOB Goal to be met by: 01/09/19 GOAL #3: Improve BLE strength 4 to 4+/5 Goal to be met by: 01/09/19 Plan Plan of Care: Therapeutic EX, Therapeutic Activity Other:: gait training Duration of Treatment: 2 Weeks Anticipated Discharge Destination: Home Treatment Diagnosis (ICD 10 Codes): s/p cholecystectomy. R26.81 balance impaired. R 26.2 difficulty walking. M62.81 general weakness Has the Physician been added for Co-signature?: Yes
--- NOTE | 2018-12-26 16:01 | DI ---
Exam: Single view of the chest. Comparison: 12/21/2018. Reason for exam: Short of air. FINDINGS: There is blunting of the right costophrenic angle that was not seen on previous imaging. No pneumothorax is seen. The cardiac silhouette is unchanged. Impression: Blunting of the right costophrenic angle likely developing pneumonia/atelectasis with small effusion.
--- NOTE | 2018-12-27 09:31 | PCM.PROG ---
Attending Provider: ATTENDING PROVIDER: Dr. TODD FERNÁNDEZ DATE OF SERVICE: 12/27/18 SUBJECTIVE: This 78 year old WHITE/ M was hospitalized 12/25/18 to swing bed after Cholecystectomy. The patient surgery part seems to be doing quite well. No abdominal pain. He is tolerating food normally. Blood pressure is not controlled. AST and ALT are elevated not sure if elevated due to the patient's status post Cholecystectomy. REVIEW OF SYSTEMS: CONSTITUTIONAL: No night sweats. No fatigue, malaise, lethargy. No fever or chills. HEENT: Eyes: No visual changes. No eye pain. No eye discharge. ENT: No runny nose. No epistaxis. No sinus pain. No odynophagia. No congestion. RESPIRATORY: No cough, no congestion. No hemoptysis. No shortness of breath. CARDIOVASCULAR: No angina symptoms. No CHF symptoms. No atypical chest pain for CAD. No palpitations. No orthopnea.. GASTROINTESTINAL: No abdominal pain. No nausea or vomiting. No diarrhea or constipation. No hematemesis. No hematochezia. GENITOURINARY: No urgency. No frequency. No dysuria. No hematuria. No obstructive symptoms. No discharge. No pain. No significant abnormal bleeding. MUSCULOSKELETAL: No musculoskeletal pain; no joint swelling. NEUROLOGICAL: Awake, alert, oriented to time, place and person. No headache. No neck pain. No syncope. No seizures. No dizziness. PSYCHIATRIC: Not anxious. No depression. No suicidal thoughts. No homicidal thoughts. SKIN: No rash. No lesions. No wounds. ENDOCRINE: No unexplained weight loss. No weight gain. HEMATOLOGIC/LYMPHATIC: No anemia. No purpura. No petechiae. No prolonged or excessive bleeding. No palpable lymph nodes. PHYSICAL EXAMINATION: GENERAL: The patient is awake, alert and oriented to time, place and person, lying in bed in no distress. VITAL SIGNS: Temperature 98.1 F, Pulse 77, Respiratory Rate 24, BP 178/90, Pulse Ox 95% HEENT: Head normocephalic, atraumatic. Eyes: Extraocular muscles are intact. Pupils are equal, round and reactive to light and accommodation. Ears: No lesions. Nose appeared normal. Throat: No exudate or erythema. NECK: Supple. No JVD, no carotid bruit. No lymphadenopathy or thyromegaly. LUNGS: Clear to auscultation. Percussion note normal. Chest symmetrical. HEART: S1, S2, no S3. No murmurs. No cyanosis or clubbing. No ascites. Pulses: Dorsalis pedis and posterior tibial pulses +1 to +2 both sides. ABDOMEN: Soft. Non-tender. Bowel sounds active. No CVA tenderness. No mass felt. EXTREMITIES: No edema. Full range of motion of all extremities, equal. NEUROLOGIC: No focal deficit. Cranial nerves II through XII are grossly intact. No headache, no double vision or headache. SKIN: Warm and dry. Intact. Turgor-normal. LYMPHATIC: No palpable lymph nodes/no lymphedema. MUSCULOSKELETAL: Normal joints with no swelling. Muscle tone is normal. LAB REVIEW: 12/27/18 04:51 12/27/18 04:51 12/27/18 04:51: Sodium 132.1 L, Potassium 3.31 L, Chloride 98.8, Carbon Dioxide 26.8, Anion Gap 9.81, BUN 7.7 L, Creatinine 0.72, Estimated GFR (MDRD) 105.00, BUN/Creatinine Ratio 10.69, Glucose 119.1 H, Calcium 7.76 L, Total Bilirubin 0.91, AST 314.5 H D, ALT 299.2 H D, Alkaline Phosphatase 96.3, Total Protein 5.86 L, Albumin 2.85 L, Globulin 3.01, Albumin/Globulin Ratio 0.94 12/27/18 04:51: WBC 5.70, RBC 4.80, Hgb 14.0, Hct 40.9 L, MCV 85.2, MCH 29.2, MCHC 34.2, RDW Coeff of Nelson 13.2, Plt Count 243, Immature Gran % (Auto) 1.1, Neut % (Auto) 65.9, Lymph % (Auto) 20.0, [place] % (Auto) 9.3, Eos % (Auto) 2.8, Baso % (Auto) 0.9, Immature Gran # (Auto) 0.1, Neut # (Auto) 3.8, Lymph # (Auto ) 1.1, [place] # (Auto) 0.5, Eos # (Auto) 0.2, Baso # (Auto) 0.1 12/26/18 04:50: Thyroxine (T4) 7.6 ASSESSMENT: Please see below. 1. Status post Cholecystectomy 2. Abnormal liver profile could be related to surgery, will do an ultrasound of right upper quadrant 3. Hypokalemia resolving, continue potassium supplement. 4. Hypertension, move Norvasc at night. PLAN: 1.Discontinue Zestril 2.Losartan 50mg twice a day 3.Encourage the patient to walk. 4.Monitor CBC and CMP including liver profile. Plan and coordination of the patient's care discussed in the presence of Psychological Anthropologist and nurse. CONDITION: Stable. SCRIBED BY: Alessio REHMAN scribed while in presence of service performed by Dr. TODD FERNÁNDEZ on 12/27/18 ([id number])
[2018-12-27] MEDS: NYSTATIN CREAM TP SCH ×2 (10:00→21:11)
--- NOTE | 2018-12-27 10:49 | US ---
EXAM: Right upper quadrant abdominal ultrasound. History: Elevated liver function tests. Comparison: CT abdomen pelvis 12/21/2018 Technique: Multiple sonographic images through the abdomen were obtained. Color duplex Doppler was used to interrogate vascular flow. Findings: Very limited evaluation due to shadowing bowel gas and recent postoperative state. The [facility] er is not well imaged. No obvious focal liver lesions are identified. Status post cholecystectomy. Common bile duct is not well visualized due to obscuration by bowel gas. Pancreas is not well visua lized due to obscuration by bowel gas. Right kidney is not well visualized due to obscuration by bow el gas. Impression: Very limited examination due to shadowing bowel gas. Consider further evaluation with M RI/MRCP abdomen with and without contrast if abnormal laboratory values persist.
[2018-12-27] MEDS: MINOXIDIL PO SCH (11:23)
[2018-12-27] MEDS: COZAAR PO SCH ×2 (11:24→21:10)
[2018-12-27] MEDS: K-DUR PO SCH ×3 (11:24→17:04)
[2018-12-27] MEDS: DIFLUCAN PO SCH (11:24)
[2018-12-27] MEDS: ASPIRIN EC PO SCH (11:25)
--- NOTE | 2018-12-27 11:42 | RS.OTINEVL ---
Subjective - Patient information Date of Evaluation: 12/27/18 Date of Arrival on Unit: 12/26/18 Admitted From:: Facility Transfer Usual Living Arrangement: Alone Living Arrangement Comments: Pt lives alone in his house. Pt uses a Rollator walker and has had a fall. Pt is weak and has a hard time getting up out of the chair. Pt washes off at home and does not take a shower. Home Environment: House Medical History Comments:: cholecystectomy, fell at home, former smoker, coronary stent, appendectomy, uses a rollator walker Surgical History: Cholecystectomy Surgical History Comments:: coronary stent Subjective Information/ Patient Comments:: "Can i just wash off?" "Lets do it later." - Level of function Prior to this admission, the patient could do the following:: Independent Selfcare, Independent ADL's, Independent Ambulation, Participated in Social Activities Outside home Abilities prior to this admission: Pt has difficulty with bathing, walking, dressing, bed mobility, transfers. Current Level of Function: Partially Dependent Current Equipment Used at Home: rollator walker at home and hand rails. Pain Assessment - Pain Pain Score: 3 Pain Location Body Site: Back Pain Aggravating Factors: ADL's, Changing Position, Standing, Walking Interventions - Objective Patient Orientation: Person, Place, Time, Situation Current Interventions: Telemetry Observation: Pt walks with flexed hips with rollator walker. Pt tries to complete sit to stand with feet crossed due to his painful hips and knees. Interventions - ROM Right Upper Extremity AROM: Slight limitation Left Upper Extremity AROM: WFL's - Strength Right Upper Extremity Strength: Mild Weakness Left Upper Extremity Strength: Mild Weakness - Sensation Right Upper Extremity Sensation: Intact/Normal Left Upper Extremity Sensation: Intact/Normal Balance - Sitting Balance Static Sitting Balance: Fair Dynamic Sitting Balance: Fair - Standing Balance Static Standing Balance: Poor Dynamic Standing Balance: Poor ADL Skills - Self Feeding Self Feeding: Independent - Grooming Grooming: Min Assist - Bathing Bathing UE: Mod Assist Bathing LE: Max Assist - Dressing Dressing UE: Min Assist Dressing LE: Max Assist - Toilet Management Toileting Management: Min Assist Functional Mobility - Bed Mobility Rolling R/L: Min Assist Scooting: Min Assist Supine to Sit: Min Assist Sit to Supine: Min Assist - Transfers Sit to Stand: Min Assist, 2 person assist Stand to Sit: Min Assist, 2 person assist Stand Pivot Transfers: Min Assist, 2 person assist - Ambulation Weight Bearing Status: FWB Assistive Device Used: Rollator Assistance needed with Ambulation: Min Assist - Safety Awareness Safety Awareness: Fair ANNALEE INDEX SCORE: 40 Additional Treatment Performed - Additional units charged ADL: 15 - Time with patient Length of Evaluation: 30 Total treatment time: 45 Activities Would you be interested in leaving your room for activities?: Yes Would you enjoy group activities?: Yes What types of things do you enjoy doing? Any Hobbies?: Television Patient Interests:: Watching Television, Visiting/Socializing Patient Education Patient Education: Education of diagnosis, Home Safety, Education of Plan of Care Teaching Recipient: Patient Teaching Methods: Discussion Assessment Problem List:: Decreased level of function, Requires training/education, Decreased safety/Risk of falls, Weakness, Pain limits previous level of function Rehab Potential: Good Further Therapy Indicated?: Yes Candidate for Swing Bed for Therapy Services?: Swing bed Evaluation Complexity: HISTORY: Medium, EXAM OF BODY SYSTEMS: Medium, CLINICAL DECISION MAKING: Medium Short Term Goals - Goals GOAL 1: Patient to increase functional transfers to CGA with rollator walker. Goal to be met by: 01/03/19 GOAL 2: Pt to increase RUE strength to 4/5 Goal to be met by: 01/03/19 Progress towards goal: Partially Met GOAL 3: Pt to increase independence of LB dressing to minimal assistance. Goal to be met by: 01/03/19 Nursing Home Goals GOAL 1: Pt to increase Functional transfers with Rollator walker to be Mod-I & safe Goal to be met by: 01/10/19 GOAL 2: Pt to increase RUE strength to 4+/5. Goal to be met by: 01/10/19 GOAL 3: Pt to be independent with ADLS and home exercise program Goal to be met by: 01/10/19 Plan Plan of Care: Therapeutic EX, Neuromuscular Re-Educ, Therapeutic Activity, Self- Care/Home Management Frequency of Treatment: 1-2 X day, as tolerated Duration of Treatment: 2 Weeks Anticipated Discharge Destination: Home Treatment Diagnosis (ICD 10 Codes): M62.81 Muscle weakness, Z74.1 Need for assistance with personal care. Has the Physician been added for Co-signature?: Yes
[2018-12-27] MEDS: NORVASC PO SCH (21:10)
[2018-12-27] MEDS: COLACE PO SCH (21:10)
[2018-12-28] MEDS: K-DUR PO SCH ×3 (10:21→16:38)
[2018-12-28] MEDS: COLACE PO SCH ×3 (10:21→21:33)
[2018-12-28] MEDS: MINOXIDIL PO SCH (10:21)
[2018-12-28] MEDS: COZAAR PO SCH ×2 (10:21→21:33)
[2018-12-28] MEDS: ASPIRIN EC PO SCH (10:22)
[2018-12-28] MEDS: NYSTATIN CREAM TP SCH ×2 (10:22→21:40)
--- NOTE | 2018-12-28 10:45 | CT ---
Exam: CT abdomen pelvis without intravenous contrast followed by CT abdomen pelvis with intravenous contrast. Comparison: Ultrasound performed 12/27/2018. CT performed 12/21/2018. Reason for exam: Elevated liver enzymes recent laparoscopic cholecystectomy the FINDINGS: Moderately sized right-sided pleural effusion that was not seen on the previous exam with overlying atelectasis/pneumonia. 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 The liver, spleen, and adrenal glands appear grossly unremarkable within limitations of a noncontrast ed study. No hydronephrosis, hydroureter or nephrolithiasis in either kidney. Inflammatory changes are seen in the expected location of the gallbladder fossa. No intra-abdominal free air or pelvic free fluid is seen. No focal small bowel dilatation or transition point. Diverticular disease is seen throughout the colon without surrounding inflammatory change. The bladder appears grossly unremarkable. Degenerative disease is seen in both hips and the lumbosacral spine. No suspicious appearing osteobl astic or osteolytic lesions. Impression: 1. Inflammatory changes are seen in the expected location of the gallbladder fossa. These findings are likely postoperative. Recommend correlation with timing of cholecystectomy. 2. Moderately sized right-sided pleural effusion with basilar atelectasis/pneumonia versus inflammat ion. 3. Diverticulosis without diverticulitis
[2018-12-28] MEDS: NORVASC PO SCH (21:33)
[2018-12-29] MEDS: COZAAR PO SCH ×2 (08:51→20:25)
[2018-12-29] MEDS: MINOXIDIL PO SCH (08:51)
[2018-12-29] MEDS: COLACE PO SCH ×3 (08:51→20:26)
[2018-12-29] MEDS: ASPIRIN EC PO SCH (08:51)
[2018-12-29] MEDS: BACTROBAN TP SCH ×2 (08:53→20:26)
[2018-12-29] MEDS: K-DUR PO SCH ×3 (08:53→16:38)
--- NOTE | 2018-12-29 09:12 | PCM.PROG ---
Attending Provider: ATTENDING PROVIDER: Dr. TODD FERNÁNDEZ This patient is seen with Yue Carreon, Nurse Practitioner. DATE OF SERVICE: 12/29/18 SUBJECTIVE: This 78 year old WHITE/ M was hospitalized 12/25/18. The patient is resting comfortably. He hasn't been eating much and hadn't had bowel movement in few days, the patient says that this is normal. There is redness around the laparoscopic site. Resting comfortably. There is drainage from the KAM drain site. REVIEW OF SYSTEMS: CONSTITUTIONAL: No night sweats. No fatigue, malaise, lethargy. No fever or chills. HEENT: Eyes: No visual changes. No eye pain. No eye discharge. ENT: No runny nose. No epistaxis. No sinus pain. No odynophagia. No congestion. RESPIRATORY: No cough, no congestion. No hemoptysis. No shortness of breath. CARDIOVASCULAR: No angina symptoms. No CHF symptoms. No atypical chest pain for CAD. No palpitations. No orthopnea.. GASTROINTESTINAL: No abdominal pain. No nausea or vomiting. No diarrhea or constipation. No hematemesis. No hematochezia. Diminished appetite. GENITOURINARY: No urgency. No frequency. No dysuria. No hematuria. No obstructive symptoms. No discharge. No pain. No significant abnormal bleeding. MUSCULOSKELETAL: No musculoskeletal pain; no joint swelling. Weakness. NEUROLOGICAL: Awake, alert, oriented to time, place and person. No headache. No neck pain. No syncope. No seizures. No dizziness. PSYCHIATRIC: Not anxious. No depression. No suicidal thoughts. No homicidal thoughts. SKIN: No rash. No lesions. No wounds. ENDOCRINE: No unexplained weight loss. No weight gain. HEMATOLOGIC/LYMPHATIC: No anemia. No purpura. No petechiae. No prolonged or excessive bleeding. No palpable lymph nodes. PHYSICAL EXAMINATION: GENERAL: The patient is awake, alert and oriented, lying in bed in no distress. VITAL SIGNS: Temperature 98.5 F, Pulse 83, Respiratory Rate 18, BP 133/72, Pulse Ox 96% HEENT: Head normocephalic, atraumatic. Eyes: Extraocular muscles are intact. Pupils are equal, round and reactive to light and accommodation. Ears: No lesions. Nose appeared normal. Throat: No exudate or erythema. NECK: Supple. No JVD, no carotid bruit. No lymphadenopathy or thyromegaly. LUNGS: Diminished breath sounds. Clear to auscultation. Percussion note normal. Chest symmetrical. HEART: S1, S2, no S3. No murmurs. No cyanosis or clubbing. No ascites. Pulses: Dorsalis pedis and posterior tibial pulses +1 to +2 both sides. ABDOMEN: Soft. Non-tender. Bowel sounds active. No CVA tenderness. No mass felt. Laparscopic scope incision has some erythema no drainage. Incision for KAM drainage on right abdomen with purulent drainage. EXTREMITIES: No edema. Full range of motion of all extremities, equal. NEUROLOGIC: No focal deficit. Cranial nerves II through XII are grossly intact. No headache, no double vision or headache. SKIN: Not dry. Intact. Turgor-normal. LYMPHATIC: No palpable lymph nodes/no lymphedema. MUSCULOSKELETAL: Normal joints with no swelling. Muscle tone is normal. LAB REVIEW: 12/29/18 05:25 12/29/18 05:25 12/29/18 05:25: Sodium 132.4 L, Potassium 4.12, Chloride 99.3, Carbon Dioxide 26.4, Anion Gap 10.82, BUN 8.3 L, Creatinine 0.76, Estimated GFR (MDRD) 99.00, BUN/Creatinine Ratio 10.92, Glucose 125.3 H, Calcium 7.83 L, Total Bilirubin 0.99, AST 321.6 H D, ALT 440.3 H, Alkaline Phosphatase 94.7, Total Protein 6.05 L, Albumin 2.88 L, Globulin 3.17, Albumin/Globulin Ratio 0.90 12/29/18 05:25: WBC 5.63, RBC 4.71, Hgb 13.9 L, Hct 40.4 L, MCV 85.8, MCH 29.5, MCHC 34.4, RDW Coeff of [place] 13.2, Plt Count 241, Immature Gran % (Auto) 0.7, Neut % (Auto) 71.9, Lymph % (Auto) 16.0, [place] % (Auto) 8.3, Eos % (Auto) 2.0, Baso % (Auto) 1.1, Immature Gran # (Auto) 0.0, Neut # (Auto) 4.1, Lymph # (Auto ) 0.9, [place] # (Auto) 0.5, Eos # (Auto) 0.1, Baso # (Auto) 0.1 12/27/18 04:51: Hepatitis A IgM Ab Negative, Hep Bs Antigen Negative, Hep B Core IgM Ab Negative, Hep C Ab Signal/Cutoff 0.1 ASSESSMENT: Please see below. 1. Status post Cholecystectomy, purulent drainage from incision KAM drainage site. 2. Generalized weakness. 3. Elevated liver function, improving. PLAN: 1. Wound culture to drainage. 2. Bactroban three times a day. Plan and coordination of the patient's care discussed in the presence of Senior Bioinformatics Scientist and nurse. SCRIBED BY: SHAYLEE WINTERS Steel Analyst scribed while in presence of service performed by Dr. Fernández/Yue Carreon APRN on 12/29/18 ([id number])
[2018-12-29] MEDS: NYSTATIN CREAM TP SCH ×2 (13:00→20:27)
[2018-12-29] MEDS: NORVASC PO SCH (20:25)
[2018-12-30] MEDS: K-DUR PO SCH ×3 (08:42→17:43)
[2018-12-30] MEDS: COZAAR PO SCH ×2 (08:42→20:27)
[2018-12-30] MEDS: MINOXIDIL PO SCH (08:42)
[2018-12-30] MEDS: ASPIRIN EC PO SCH (08:42)
[2018-12-30] MEDS: BACTROBAN TP SCH ×2 (08:43→20:26)
[2018-12-30] MEDS: COLACE PO SCH ×3 (08:43→20:27)
[2018-12-30] MEDS: NYSTATIN CREAM TP SCH ×2 (08:43→20:26)
[2018-12-30] MEDS: NORVASC PO SCH (20:27)
[2018-12-31] MEDS: BACTROBAN TP SCH ×2 (08:22→20:06)
[2018-12-31] MEDS: NYSTATIN CREAM TP SCH ×2 (08:22→20:06)
[2018-12-31] MEDS: COZAAR PO SCH ×2 (08:23→20:05)
[2018-12-31] MEDS: COLACE PO SCH ×3 (08:23→20:06)
[2018-12-31] MEDS: MINOXIDIL PO SCH (08:23)
[2018-12-31] MEDS: K-DUR PO SCH ×3 (08:23→16:57)
[2018-12-31] MEDS: ASPIRIN EC PO SCH (08:23)
[2018-12-31] MEDS: NORVASC PO SCH (20:06)
--- NOTE | 2019-01-01 08:52 | PN ---
DATE OF SERVICE: 12/29/18 SUBJECTIVE: The patient was seen and examined this morning with the Nurse Practitioner. The patient's condition is stable. His liver functions are somewhat better. They have climbing last two to three days. The Golf Sales Associate has talked to surgeon, Dora Dhillon, and let her know and Dr. Dhillon has received all the test and x- ray findings that we had faxed to her. She doesn't think anything to worry about. Of course CT scan doesn't show any abscess. Scar tissue around the gallbladder. The patient's condition is improving slowly. The patient's all the labs and condition has been discussed with the daughter. TIME SPENT: More than 30 minutes. Plan and coordination of the patient's care discussed in the presence of nurse. MIKE
[2019-01-01] MEDS: K-DUR PO SCH ×3 (09:11→17:37)
[2019-01-01] MEDS: MINOXIDIL PO SCH (09:11)
[2019-01-01] MEDS: COZAAR PO SCH ×2 (09:11→20:23)
[2019-01-01] MEDS: NYSTATIN CREAM TP SCH ×2 (09:12→20:24)
[2019-01-01] MEDS: COLACE PO SCH ×3 (09:12→20:23)
[2019-01-01] MEDS: ASPIRIN EC PO SCH (09:12)
--- NOTE | 2019-01-01 09:52 | PCM.PROG ---
Attending Provider: ATTENDING PROVIDER: Dr. TODD FERNÁNDEZ This patient is seen with Yue Carreon, Nurse Practitioner. DATE OF SERVICE: 01/01/19 SUBJECTIVE: This 78 year old WHITE/ M was hospitalized 12/25/18. The patient is sitting in bed resting comfortably. He has been eating better. Liver enzymes gradually improving. Incision site on abdomen improving. REVIEW OF SYSTEMS: CONSTITUTIONAL: No night sweats. No fatigue, malaise, lethargy. No fever or chills. HEENT: Eyes: No visual changes. No eye pain. No eye discharge. ENT: No runny nose. No epistaxis. No sinus pain. No odynophagia. No congestion. RESPIRATORY: No cough, no congestion. No hemoptysis. No shortness of breath. CARDIOVASCULAR: No angina symptoms. No CHF symptoms. No atypical chest pain for CAD. No palpitations. No orthopnea.. GASTROINTESTINAL: No abdominal pain. No nausea or vomiting. No diarrhea or constipation. No hematemesis. No hematochezia. GENITOURINARY: No urgency. No frequency. No dysuria. No hematuria. No obstructive symptoms. No discharge. No pain. No significant abnormal bleeding. MUSCULOSKELETAL: No musculoskeletal pain; no joint swelling. NEUROLOGICAL: Awake, alert, oriented to time, place and person. No headache. No neck pain. No syncope. No seizures. No dizziness. PSYCHIATRIC: Not anxious. No depression. No suicidal thoughts. No homicidal thoughts. SKIN: No rash. No lesions. Abdominal incision healing well. ENDOCRINE: No unexplained weight loss. No weight gain. HEMATOLOGIC/LYMPHATIC: No anemia. No purpura. No petechiae. No prolonged or excessive bleeding. No palpable lymph nodes. PHYSICAL EXAMINATION: GENERAL: The patient is awake, alert and oriented, sitting in bed in no distress. VITAL SIGNS: Temperature 98.1 F, Pulse 84, Respiratory Rate 16, BP 140/80, Pulse Ox 97% HEENT: Head normocephalic, atraumatic. Eyes: Extraocular muscles are intact. Pupils are equal, round and reactive to light and accommodation. Ears: No lesions. Nose appeared normal. Throat: No exudate or erythema. NECK: Supple. No JVD, no carotid bruit. No lymphadenopathy or thyromegaly. LUNGS: Diminished breath sounds. Clear to auscultation. Percussion note normal. Chest symmetrical. HEART: Regular heart rate. S1, S2, no S3. No murmurs. No cyanosis or clubbing. No ascites. Pulses: Dorsalis pedis and posterior tibial pulses +1 to +2 both sides. ABDOMEN: Soft. Non-tender. Bowel sounds active. No CVA tenderness. No mass felt. EXTREMITIES: No edema. Full range of motion of all extremities, equal. NEUROLOGIC: No focal deficit. Cranial nerves II through XII are grossly intact. No headache, no double vision or headache. SKIN: Skin multiple incision sites on abdomen, localized erythema. No drainage. No signs of infection. Warm and dry. Intact. Turgor-normal. LYMPHATIC: No palpable lymph nodes/no lymphedema. MUSCULOSKELETAL: Normal joints with no swelling. Muscle tone is normal. LAB REVIEW: 01/01/19 04:50 01/01/19 04:50 01/01/19 04:50: Sodium 131.3 L, Potassium 4.76, Chloride 100.7, Carbon Dioxide 22.9, Anion Gap 12.46, BUN 8.8 L, Creatinine 0.77, Estimated GFR (MDRD) 97.00, BUN/Creatinine Ratio 11.42, Glucose 120.6 H, Calcium 8.26 L, Total Bilirubin 1.05, AST 189.5 H D, ALT 354.9 H, Alkaline Phosphatase 102.9, Total Protein 6.40 , Albumin 3.10 L, Globulin 3.30, Albumin/Globulin Ratio 0.93, Amylase 106.2 01/01/19 04:50: WBC 6.57, RBC 5.11, Hgb 14.8, Hct 44.1, MCV 86.3, MCH 29.0, MCHC 33.6, RDW Coeff of Nelson 13.2, Plt Count 276, Immature Gran % (Auto) 0.3, Neut % (Auto) 69.1, Lymph % (Auto) 17.2, [place] % (Auto) 9.3, Eos % (Auto) 2.7, Baso % (Auto) 1.4, Immature Gran # (Auto) 0.0, Neut # (Auto) 4.5, Lymph # (Auto ) 1.1, [place] # (Auto) 0.6, Eos # (Auto) 0.2, Baso # (Auto) 0.1 ASSESSMENT: 1. Status post cholecystectomy, purulent drainage from incision resolved. 2. Generalized weakness. 3. Elevated liver function, improving. PLAN: 1. Continue to monitor liver enzymes. 2. Continue PT/OT. Plan and coordination of the patient's care discussed in the presence of Cardiac Catheterization Technologist and nurse. CONDITION: Stable SCRIBED BY: ALBERT ANDREWS [employer] scribed while in presence of service performed by Dr. Fernández/Yue Carreon APRN on 01/01/19 ([id number])
[2019-01-01] MEDS: NORVASC PO SCH (20:23)
--- NOTE | 2019-01-02 08:15 | PN ---
DATE OF SERVICE: 12/31/18 SUBJECTIVE: The patient was seen and examined today. The patient is doing well and he is feeling much better. Appetite is improving. His liver enzymes are going down. REVIEW OF SYSTEMS: CONSTITUTIONAL: No night sweats. No fatigue, malaise, lethargy. No fever or chills. HEENT: Eyes: No visual changes. No eye pain. No eye discharge. ENT: No runny nose. No epistaxis. No sinus pain. No sore throat. No odynophagia. No congestion. RESPIRATORY: No cough, no congestion. No hemoptysis. No shortness of breath. CARDIOVASCULAR: No angina symptoms. No CHF symptoms. No atypical chest pain for CAD. No palpitations. No PND. No orthopnea. GASTROINTESTINAL: No abdominal pain. No nausea or vomiting. No diarrhea or constipation. No hematemesis. No hematochezia. GENITOURINARY: No urgency. No frequency. No dysuria. No hematuria. No obstructive symptoms. No discharge. No pain. No significant abnormal bleeding. MUSCULOSKELETAL: No musculoskeletal pain; no joint swelling. NEUROLOGICAL: No headache. No neck pain. No syncope. No seizures. No dizziness. PSYCHIATRIC: Not anxious. No depression. No suicidal thoughts. No homicidal thoughts. SKIN: No rash. No lesions. No wounds. ENDOCRINE: No unexplained weight loss. No weight gain. HEMATOLOGIC/LYMPHATIC: No anemia. No purpura. No petechiae. No prolonged or excessive bleeding. No palpable lymph nodes. PHYSICAL EXAMINATION: HEENT: Head normocephalic, atraumatic. Eyes: Extraocular muscles are intact. Pupils are equal, round and reactive to light and accommodation. Ears: No lesions. Nose appeared normal. Throat: No exudate or erythema. NECK: Supple. No JVD, no carotid bruit. No lymphadenopathy or thyromegaly. LUNGS: Clear to auscultation. Percussion note normal. Chest symmetrical. HEART: S1, S2, no S3. No murmurs. No cyanosis or clubbing. No ascites. Pulses: Dorsalis pedis and posterior tibial pulses +1 to +2 bilaterally. ABDOMEN: Soft. Nontender. Bowel sounds active. No CVA tenderness. No mass felt. The patient had BM everyday except today. EXTREMITIES: No edema. Full range of motion of all extremities, equal. NEUROLOGIC: No focal deficit. Cranial nerves II through XII are grossly intact. No headache, no double vision or headache. SKIN: Not dry. Intact. Turgor - normal. LYMPHATIC: No palpable lymph nodes/no lymphedema. MUSCULOSKELETAL: Normal joints with no swelling. Muscle tone is normal. LABS: Hgb and Hct is stable. WBC is normal CONDITION: Improving a lot. The patient is a difficult patient to put him through physical therapy. He doesn't want to get up and walking around. He is very stubborn man. Patient has good family support and a good family. TIME SPENT: More than 30 minutes. Plan and coordination of the patient's care discussed in the presence of nurse. MIKE
[2019-01-02] MEDS: K-DUR PO SCH ×3 (08:22→18:11)
[2019-01-02] MEDS: MINOXIDIL PO SCH (08:23)
[2019-01-02] MEDS: ASPIRIN EC PO SCH (08:23)
[2019-01-02] MEDS: COLACE PO SCH ×3 (08:23→21:18)
[2019-01-02] MEDS: COZAAR PO SCH ×2 (08:23→21:18)
[2019-01-02] MEDS: NYSTATIN CREAM TP SCH ×2 (08:24→21:19)
[2019-01-02] MEDS: NORVASC PO SCH (21:18)
[2019-01-03] MEDS: K-DUR PO SCH ×3 (08:29→16:43)
[2019-01-03] MEDS: MINOXIDIL PO SCH (08:29)
[2019-01-03] MEDS: COZAAR PO SCH ×2 (08:29→20:38)
[2019-01-03] MEDS: COLACE PO SCH (08:30)
[2019-01-03] MEDS: NYSTATIN CREAM TP SCH ×2 (08:30→20:38)
[2019-01-03] MEDS: ASPIRIN EC PO SCH (08:30)
--- NOTE | 2019-01-03 09:03 | PCM.PROG ---
Attending Provider: ATTENDING PROVIDER: Dr. TODD FERNÁNDEZ This patient is seen with Yue Carreon, Nurse Practitioner. DATE OF SERVICE: 01/03/19 SUBJECTIVE: This 78 year old WHITE/ M was hospitalized 12/25/18. The patient is sitting in bed resting comfortably. Liver enzymes significantly improved. He is eating better. REVIEW OF SYSTEMS: CONSTITUTIONAL: No night sweats. No fatigue, malaise, lethargy. No fever or chills. HEENT: Eyes: No visual changes. No eye pain. No eye discharge. ENT: No runny nose. No epistaxis. No sinus pain. No odynophagia. No congestion. RESPIRATORY: No cough, no congestion. No hemoptysis. No shortness of breath. CARDIOVASCULAR: No angina symptoms. No CHF symptoms. No atypical chest pain for CAD. No palpitations. No orthopnea.. GASTROINTESTINAL: Appetite is improving. No abdominal pain. No nausea or vomiting. No diarrhea or constipation. No hematemesis. No hematochezia. GENITOURINARY: No urgency. No frequency. No dysuria. No hematuria. No obstructive symptoms. No discharge. No pain. No significant abnormal bleeding. MUSCULOSKELETAL: Generalized weakness. No musculoskeletal pain; no joint swelling. NEUROLOGICAL: Awake, alert, oriented to time, place and person. No headache. No neck pain. No syncope. No seizures. No dizziness. PSYCHIATRIC: Not anxious. No depression. No suicidal thoughts. No homicidal thoughts. SKIN: No rash. No lesions. No wounds. ENDOCRINE: No unexplained weight loss. No weight gain. HEMATOLOGIC/LYMPHATIC: No anemia. No purpura. No petechiae. No prolonged or excessive bleeding. No palpable lymph nodes. PHYSICAL EXAMINATION: GENERAL: The patient is awake, alert and oriented, sitting in bed in no distress. VITAL SIGNS: Temperature 98.5 F, Pulse 109, Respiratory Rate 18, BP 138/75, Pulse Ox 97% HEENT: Head normocephalic, atraumatic. Eyes: Extraocular muscles are intact. Pupils are equal, round and reactive to light and accommodation. Ears: No lesions. Nose appeared normal. Throat: No exudate or erythema. NECK: Supple. No JVD, no carotid bruit. No lymphadenopathy or thyromegaly. LUNGS: Clear to auscultation. Percussion note normal. Chest symmetrical. HEART: S1, S2, no S3. No murmurs. No cyanosis or clubbing. No ascites. Pulses: Dorsalis pedis and posterior tibial pulses +1 to +2 both sides. ABDOMEN: Soft. Non-tender. Bowel sounds active. No CVA tenderness. No mass felt. EXTREMITIES: No edema. Full range of motion of all extremities, equal. NEUROLOGIC: No focal deficit. Cranial nerves II through XII are grossly intact. No headache, no double vision or headache. SKIN: Not dry. Intact. Turgor-normal. LYMPHATIC: No palpable lymph nodes/no lymphedema. MUSCULOSKELETAL: Normal joints with no swelling. Muscle tone is normal. LAB REVIEW: 01/03/19 04:45 01/03/19 04:45 01/03/19 04:45: Sodium 133.0 L, Potassium 4.82, Chloride 104.1, Carbon Dioxide 22.6, Anion Gap 11.12, BUN 9.5, Creatinine 0.80, Estimated GFR (MDRD) 93.00, BUN /Creatinine Ratio 11.87, Glucose 116.2 H, Calcium 8.16 L, Total Bilirubin 0.80, AST 129.8 H D, ALT 274.6 H D, Alkaline Phosphatase 94.4, Total Protein 6.07 L, Albumin 2.90 L, Globulin 3.17, Albumin/Globulin Ratio 0.91 01/03/19 04:45: WBC 5.21, RBC 4.87, Hgb 14.0, Hct 42.0, MCV 86.2, MCH 28.7, MCHC 33.3, RDW Coeff of [place] 13.2, Plt Count 252, Immature Gran % (Auto) 0.4, Neut % (Auto) 54.7, Lymph % (Auto) 27.4, [place] % (Auto) 12.9 H, Eos % (Auto) 2.3 , Baso % (Auto) 2.3, Immature Gran # (Auto) 0.0, Neut # (Auto) 2.9, Lymph # ( Auto) 1.4, [place] # (Auto) 0.7, Eos # (Auto) 0.1, Baso # (Auto) 0.1 ASSESSMENT: 1. Status post cholecystectomy, purulent drainage from incision, resolved. 2. Generalized weakness. 3. Elevated liver function, improving. PLAN: 1. Continue PT/OT Plan and coordination of the patient's care discussed in the presence of Child Care Coordinator and nurse. CONDITION: Stable SCRIBED BY: ALBERT ANDREWS Group Director Experience scribed while in presence of service performed by Dr. Fernández/Yue Carreon APRN on 01/03/19 ([id number])
[2019-01-03] MEDS ORDERED: COLACE PO PRN (12:13)
[2019-01-03] MEDS: NORVASC PO SCH (20:38)
[2019-01-04] MEDS: NYSTATIN CREAM TP SCH ×2 (08:02→20:32)
[2019-01-04] MEDS: K-DUR PO SCH ×3 (08:03→16:53)
[2019-01-04] MEDS: MINOXIDIL PO SCH (08:03)
[2019-01-04] MEDS: COZAAR PO SCH ×2 (08:03→20:32)
[2019-01-04] MEDS: ASPIRIN EC PO SCH (08:03)
--- NOTE | 2019-01-04 10:35 | PN ---
DATE OF SERVICE: 01/01/19 SUBJECTIVE: Mr. Jimenes was seen and examined with the nurse practitioner. See the note. PHYSICAL EXAMINATION: HEENT: Head normocephalic, atraumatic. Eyes: Extraocular muscles are intact. Pupils are equal, round and reactive to light and accommodation. Ears: No lesions. Nose appeared normal. Throat: No exudate or erythema. NECK: Supple. No JVD, no carotid bruit. No lymphadenopathy or thyromegaly. LUNGS: Clear to auscultation. Percussion note normal. Chest symmetrical. HEART: S1, S2, no S3. No murmurs. No cyanosis or clubbing. No ascites. Pulses: Dorsalis pedis and posterior tibial pulses +1 to +2 bilaterally. ABDOMEN: Soft. Nontender. Bowel sounds active. No CVA tenderness. No mass felt. EXTREMITIES: No edema. Full range of motion of all extremities, equal. NEUROLOGIC: No focal deficit. Cranial nerves II through XII are grossly intact. No headache, no double vision or headache. SKIN: Not dry. Intact. Turgor - normal. LYMPHATIC: No palpable lymph nodes/no lymphedema. MUSCULOSKELETAL: Normal joints with no swelling. Muscle tone is normal. ASSESSMENT: Liver functions are improving. Appetite improving. BM is normal. He is still not too cooperative with physical therapy. TIME SPENT: More than 30 minutes. Plan and coordination of the patient's care discussed in the presence of nurse. MKIE
--- NOTE | 2019-01-04 13:54 | PN ---
DATE OF SERVICE: 01/04/19 SUBJECTIVE: The patient is seen and examined with the nurse practitioner. The patient's condition is improving. Liver functions are better. PHYSICAL EXAMINATION: HEENT: Head normocephalic, atraumatic. Eyes: Extraocular muscles are intact. Pupils are equal, round and reactive to light and accommodation. Ears: No lesions. Nose appeared normal. Throat: No exudate or erythema. NECK: Supple. No JVD, no carotid bruit. No lymphadenopathy or thyromegaly. LUNGS: Clear to auscultation. Percussion note normal. Chest symmetrical. HEART: S1, S2, no S3. No murmurs. No cyanosis or clubbing. No ascites. Pulses: Dorsalis pedis and posterior tibial pulses +1 to +2 bilaterally. ABDOMEN: Soft. Nontender. Bowel sounds active. No CVA tenderness. No mass felt. EXTREMITIES: Trace edema. Full range of motion of all extremities, equal. NEUROLOGIC: No focal deficit. Cranial nerves II through XII are grossly intact. No headache, no double vision or headache. SKIN: Not dry. Intact. Turgor - normal. LYMPHATIC: No palpable lymph nodes/no lymphedema. MUSCULOSKELETAL: Normal joints with no swelling. Muscle tone is normal. The patient is feeling better. TIME SPENT: More than 30 minutes. Plan and coordination of the patient's care discussed in the presence of nurse. MIKE
[2019-01-04] MEDS: NORVASC PO SCH (20:32)
--- NOTE | 2019-01-05 09:03 | PCM.PROG ---
Attending Provider: ATTENDING PROVIDER: Dr. TODD FERNÁNDEZ This patient is seen with Yue Carreon, Nurse Practitioner. DATE OF SERVICE: 01/05/19 SUBJECTIVE: This 78 year old WHITE/ M was hospitalized 12/25/18. The patient is lying in bed resting comfortably. He is doing well with PT. Appetite improved. Labs improving. Anticipate d/c home sometime next week. REVIEW OF SYSTEMS: CONSTITUTIONAL: No night sweats. No fatigue, malaise, lethargy. No fever or chills. HEENT: Eyes: No visual changes. No eye pain. No eye discharge. ENT: No runny nose. No epistaxis. No sinus pain. No odynophagia. No congestion. RESPIRATORY: No cough, no congestion. No hemoptysis. No shortness of breath. CARDIOVASCULAR: No angina symptoms. No CHF symptoms. No atypical chest pain for CAD. No palpitations. No orthopnea.. GASTROINTESTINAL: No abdominal pain. No nausea or vomiting. No diarrhea or constipation. No hematemesis. No hematochezia. GENITOURINARY: No urgency. No frequency. No dysuria. No hematuria. No obstructive symptoms. No discharge. No pain. No significant abnormal bleeding. MUSCULOSKELETAL: Leg weakness. No musculoskeletal pain; no joint swelling. NEUROLOGICAL: Awake, alert, oriented to time, place and person. No headache. No neck pain. No syncope. No seizures. No dizziness. PSYCHIATRIC: Not anxious. No depression. No suicidal thoughts. No homicidal thoughts. SKIN: No rash. No lesions. Abdominal incision site healing. ENDOCRINE: No unexplained weight loss. No weight gain. HEMATOLOGIC/LYMPHATIC: No anemia. No purpura. No petechiae. No prolonged or excessive bleeding. No palpable lymph nodes. PHYSICAL EXAMINATION: GENERAL: The patient is awake, alert and oriented, lying in bed in no distress. VITAL SIGNS: Temperature 98.3 F, Pulse 83, Respiratory Rate 18, BP 117/64, Pulse Ox 96% HEENT: Head normocephalic, atraumatic. Eyes: Extraocular muscles are intact. Pupils are equal, round and reactive to light and accommodation. Ears: No lesions. Nose appeared normal. Throat: No exudate or erythema. NECK: Supple. No JVD, no carotid bruit. No lymphadenopathy or thyromegaly. LUNGS: Diminished breath sounds. Clear to auscultation. Percussion note normal. Chest symmetrical. HEART: S1, S2, no S3. No murmurs. No cyanosis or clubbing. No ascites. Pulses: Dorsalis pedis and posterior tibial pulses +1 to +2 both sides. ABDOMEN: Incision site healing well, scab falling off. Soft. Non-tender. Bowel sounds active. No CVA tenderness. No mass felt. EXTREMITIES: No edema. Full range of motion of all extremities, equal. NEUROLOGIC: No focal deficit. Cranial nerves II through XII are grossly intact. No headache, no double vision or headache. SKIN: Warm, dry and intact. Turgor-normal. LYMPHATIC: No palpable lymph nodes/no lymphedema. MUSCULOSKELETAL: Normal joints with no swelling. Muscle tone is normal. LAB REVIEW: 01/04/19 04:46 01/04/19 04:46 ASSESSMENT: 1. Status post cholecystectomy, purulent drainage from incision, resolved. 2. Generalized weakness. 3. Elevated liver function, improving. PLAN: 1. Continue PT/OT Plan and coordination of the patient's care discussed in the presence of Receiving Inspector and nurse. CONDITION: Stable SCRIBED BY: Melissa MAGALLANESist scribed while in presence of service performed by Dr. Fernández/Yue Carreon APRN on 01/05/19 ([id number])
[2019-01-05] MEDS: ASPIRIN EC PO SCH (09:31)
[2019-01-05] MEDS: COZAAR PO SCH ×2 (09:31→21:23)
[2019-01-05] MEDS: K-DUR PO SCH ×3 (09:32→16:29)
[2019-01-05] MEDS: MINOXIDIL PO SCH (09:32)
[2019-01-05] MEDS: NYSTATIN CREAM TP SCH ×2 (09:33→21:26)
[2019-01-05] MEDS: NORVASC PO SCH (21:23)
[2019-01-06] MEDS: K-DUR PO SCH ×3 (09:22→17:01)
[2019-01-06] MEDS: ASPIRIN EC PO SCH (09:22)
[2019-01-06] MEDS: NYSTATIN CREAM TP SCH ×2 (09:23→22:02)
[2019-01-06] MEDS: MINOXIDIL PO SCH (09:23)
[2019-01-06] MEDS: COZAAR PO SCH ×2 (09:23→21:56)
[2019-01-06] MEDS: NORVASC PO SCH (21:56)
[2019-01-07] MEDS: ASPIRIN EC PO SCH (08:10)
[2019-01-07] MEDS: MINOXIDIL PO SCH (08:11)
[2019-01-07] MEDS: K-DUR PO SCH ×3 (08:11→16:51)
[2019-01-07] MEDS: COZAAR PO SCH ×2 (08:11→20:34)
[2019-01-07] MEDS: NYSTATIN CREAM TP SCH ×2 (08:11→20:35)
[2019-01-07] MEDS: NORVASC PO SCH (20:33)
[2019-01-08] MEDS: NYSTATIN CREAM TP SCH ×2 (08:35→21:20)
[2019-01-08] MEDS: COZAAR PO SCH ×2 (08:36→21:19)
[2019-01-08] MEDS: ASPIRIN EC PO SCH (08:36)
[2019-01-08] MEDS: MINOXIDIL PO SCH (08:36)
[2019-01-08] MEDS: K-DUR PO SCH ×3 (08:36→16:31)
--- NOTE | 2019-01-08 13:21 | PN ---
DATE OF SERVICE: 01/05/19 SUBJECTIVE: The patient was seen and examined with Nurse Practitioner. The patient's condition is unchanged and improving with functional capacity with physical therapy. TIME SPENT: More than 30 minutes. Plan and coordination of the patient's care discussed in the presence of nurse. MIKE
--- NOTE | 2019-01-08 13:24 | PN ---
DATE OF SERVICE: 01/07/19 SUBJECTIVE: 78 year old white male hospitalized in the swing bed with functional decline after undergoing lap cholecystectomy. The patient's leg edema is much better. His motility has improved. His appetite is great. REVIEW OF SYSTEMS: CONSTITUTIONAL: No night sweats. No fatigue, malaise, lethargy. No fever or chills. HEENT: Eyes: No visual changes. No eye pain. No eye discharge. ENT: No runny nose. No epistaxis. No sinus pain. No sore throat. No odynophagia. No congestion. RESPIRATORY: No cough, no congestion. No hemoptysis. No shortness of breath. CARDIOVASCULAR: No angina symptoms. No CHF symptoms. No atypical chest pain for CAD. No palpitations. No PND. No orthopnea. GASTROINTESTINAL: No abdominal pain. No nausea or vomiting. No diarrhea or constipation. No hematemesis. No hematochezia. GENITOURINARY: No urgency. No frequency. No dysuria. No hematuria. No obstructive symptoms. No discharge. No pain. No significant abnormal bleeding. MUSCULOSKELETAL: No musculoskeletal pain; no joint swelling. NEUROLOGICAL: No headache. No neck pain. No syncope. No seizures. No dizziness. PSYCHIATRIC: Not anxious. No depression. No suicidal thoughts. No homicidal thoughts. SKIN: No rash. No lesions. No wounds. ENDOCRINE: No unexplained weight loss. No weight gain. HEMATOLOGIC/LYMPHATIC: No anemia. No purpura. No petechiae. No prolonged or excessive bleeding. No palpable lymph nodes. PHYSICAL EXAMINATION: VITAL SIGNS: Temperature 98.2, pulse 84, respiratory rate 18, blood pressure 115/69, pulse ox 97%. HEENT: Head normocephalic, atraumatic. Eyes: Extraocular muscles are intact. Pupils are equal, round and reactive to light and accommodation. Ears: No lesions. Nose appeared normal. Throat: No exudate or erythema. NECK: Supple. No JVD, no carotid bruit. No lymphadenopathy or thyromegaly. LUNGS:Decreased breath sounds. Clear to auscultation. Percussion note normal. Chest symmetrical. HEART: S1, S2, no S3. No murmurs. No cyanosis or clubbing. No ascites. Pulses: Dorsalis pedis and posterior tibial pulses +1 to +2 bilaterally. ABDOMEN: Soft. Nontender. Bowel sounds active. No CVA tenderness. No mass felt. EXTREMITIES: No edema. Full range of motion of all extremities, equal. NEUROLOGIC: No focal deficit. Cranial nerves II through XII are grossly intact. No headache, no double vision or headache. SKIN: Not dry. Intact. Turgor - normal. LYMPHATIC: No palpable lymph nodes/no lymphedema. MUSCULOSKELETAL: Normal joints with no swelling. Muscle tone is normal. LABS: hgb 13.3, hct 39, WBC 4,600 normal differential, creatinine 0.7, BUN 9, potassium 4.6. CONDITION: Improving. TIME SPENT: More than 30 minutes. Plan and coordination of the patient's care discussed in the presence of nurse. MIKE
[2019-01-08] MEDS: NORVASC PO SCH (21:19)
[2019-01-09] MEDS: MINOXIDIL PO SCH ×2 (08:15→09:15)
[2019-01-09] MEDS: ASPIRIN EC PO SCH (08:15)
[2019-01-09] MEDS: K-DUR PO SCH ×3 (08:15→16:41)
[2019-01-09] MEDS: COZAAR PO SCH ×2 (08:15→10:16)
[2019-01-09] MEDS: NYSTATIN CREAM TP SCH ×2 (08:16→20:58)
--- NOTE | 2019-01-09 08:27 | PCM.PROG ---
Attending Provider: ATTENDING PROVIDER: Dr. TODD FERNÁNDEZ DATE OF SERVICE: 01/09/19 SUBJECTIVE: This 78 year old WHITE/ M was hospitalized 12/25/18 in swing bed for functional decline after lap Cholecystectomy. Condition is improving. Appetite is improving. REVIEW OF SYSTEMS: CONSTITUTIONAL: No night sweats. No fatigue, malaise, lethargy. No fever or chills. HEENT: Eyes: No visual changes. No eye pain. No eye discharge. ENT: No runny nose. No epistaxis. No sinus pain. No odynophagia. No congestion. RESPIRATORY: No cough, no congestion. No hemoptysis. No shortness of breath. CARDIOVASCULAR: No angina symptoms. No CHF symptoms. No atypical chest pain for CAD. No palpitations. No orthopnea.. GASTROINTESTINAL: No abdominal pain. No nausea or vomiting. No diarrhea or constipation. No hematemesis. No hematochezia. GENITOURINARY: No urgency. No frequency. No dysuria. No hematuria. No obstructive symptoms. No discharge. No pain. No significant abnormal bleeding. MUSCULOSKELETAL: No musculoskeletal pain; no joint swelling. NEUROLOGICAL: Awake, alert, oriented to time, place and person. No headache. No neck pain. No syncope. No seizures. No dizziness. PSYCHIATRIC: Not anxious. No depression. No suicidal thoughts. No homicidal thoughts. SKIN: No rash. No lesions. No wounds. ENDOCRINE: No unexplained weight loss. No weight gain. HEMATOLOGIC/LYMPHATIC: No anemia. No purpura. No petechiae. No prolonged or excessive bleeding. No palpable lymph nodes. PHYSICAL EXAMINATION: GENERAL: The patient is awake, alert and oriented to time, place and person, lying in bed in no distress. VITAL SIGNS: Temperature 98.5 F, Pulse 85, Respiratory Rate 18, BP 156/80, Pulse Ox 98% HEENT: Head normocephalic, atraumatic. Eyes: Extraocular muscles are intact. Pupils are equal, round and reactive to light and accommodation. Ears: No lesions. Nose appeared normal. Throat: No exudate or erythema. NECK: Supple. No JVD, no carotid bruit. No lymphadenopathy or thyromegaly. LUNGS: Clear to auscultation. Percussion note normal. Chest symmetrical. HEART: S1, S2, no S3. No murmurs. No cyanosis or clubbing. No ascites. Pulses: Dorsalis pedis and posterior tibial pulses +1 to +2 both sides. ABDOMEN: Soft. Non-tender. Bowel sounds active. No CVA tenderness. No mass felt. EXTREMITIES: No edema. Full range of motion of all extremities, equal. NEUROLOGIC: No focal deficit. Cranial nerves II through XII are grossly intact. No headache, no double vision or headache. SKIN: Warm and dry. Intact. Turgor-normal. LYMPHATIC: No palpable lymph nodes/no lymphedema. MUSCULOSKELETAL: Normal joints with no swelling. Muscle tone is normal. LAB REVIEW: 01/07/19 04:30 01/07/19 04:30 ASSESSMENT: Please see below. 1. Status post Cholecystectomy 2. Decline in over all activity of daily living functions. 3. Not highly motivated. 4. Blood pressure has been consistently high for past couple of days. PLAN: 1. Change blood pressure medication to Lisinopril Hydrochlorothiazide 20-12.5 two tablets in the morning 2. Norvasc one at night 3. Coated aspirin one a day Plan and coordination of the patient's care discussed in the presence of Site Acquisition Manager and nurse. CONDITION: Stable SCRIBED BY: Alessio REHMAN scribed while in presence of service performed by Dr. TODD FERNÁNDEZ on 01/09/19 ([id number])
[2019-01-09] MEDS: HYDROCHLOROTHIAZIDE PO SCH (10:13)
[2019-01-09] MEDS ORDERED: COZAAR PO ONE (10:15)
[2019-01-09] MEDS: NORVASC PO SCH (20:58)
[2019-01-10 05:54] VITALS: BP 143/63; TEMP 97.8
[2019-01-10] MEDS: COZAAR PO SCH (08:17)
[2019-01-10] MEDS: MINOXIDIL PO SCH (08:18)
[2019-01-10] MEDS: K-DUR PO SCH ×2 (08:18→11:51)
[2019-01-10] MEDS: HYDROCHLOROTHIAZIDE PO SCH (08:19)
[2019-01-10] MEDS: ASPIRIN EC PO SCH (08:20)
[2019-01-10] MEDS: NYSTATIN CREAM TP SCH (08:26)
--- NOTE | 2019-01-10 08:29 | PCM.PROG ---
Attending Provider: ATTENDING PROVIDER: Dr. TODD FERNÁNDEZ This patient is seen with Yue Carreon, Nurse Practitioner. DATE OF SERVICE: 01/10/19 SUBJECTIVE: This 78 year old WHITE/ M was hospitalized 12/25/18. The patient is resting comfortably. He has been doing well and eating well. The patient has been up and about with therapy. We will anticipate discharge home today with CBC and CMP prior to discharge. REVIEW OF SYSTEMS: CONSTITUTIONAL: No night sweats. No fatigue, malaise, lethargy. No fever or chills. HEENT: Eyes: No visual changes. No eye pain. No eye discharge. ENT: No runny nose. No epistaxis. No sinus pain. No odynophagia. No congestion. RESPIRATORY: No cough, no congestion. No hemoptysis. No shortness of breath. CARDIOVASCULAR: No angina symptoms. No CHF symptoms. No atypical chest pain for CAD. No palpitations. No orthopnea.. GASTROINTESTINAL: No abdominal pain. No nausea or vomiting. No diarrhea or constipation. No hematemesis. No hematochezia. GENITOURINARY: No urgency. No frequency. No dysuria. No hematuria. No obstructive symptoms. No discharge. No pain. No significant abnormal bleeding. MUSCULOSKELETAL: No musculoskeletal pain; no joint swelling. Leg weakness. NEUROLOGICAL: Awake, alert, oriented to time, place and person. No headache. No neck pain. No syncope. No seizures. No dizziness. PSYCHIATRIC: Not anxious. No depression. No suicidal thoughts. No homicidal thoughts. SKIN: No rash. No lesions. No wounds. ENDOCRINE: No unexplained weight loss. No weight gain. HEMATOLOGIC/LYMPHATIC: No anemia. No purpura. No petechiae. No prolonged or excessive bleeding. No palpable lymph nodes. PHYSICAL EXAMINATION: GENERAL: The patient is awake, alert and oriented, sitting in bed in no distress. VITAL SIGNS: Temperature 97.8 F, Pulse 75, Respiratory Rate 18, BP 143/63, Pulse Ox 98% HEENT: Head normocephalic, atraumatic. Eyes: Extraocular muscles are intact. Pupils are equal, round and reactive to light and accommodation. Ears: No lesions. Nose appeared normal. Throat: No exudate or erythema. NECK: Supple. No JVD, no carotid bruit. No lymphadenopathy or thyromegaly. LUNGS: Diminished breath sounds. Clear to auscultation. Percussion note normal. Chest symmetrical. HEART: S1, S2, no S3. No murmurs. No cyanosis or clubbing. No ascites. Pulses: Dorsalis pedis and posterior tibial pulses +1 to +2 both sides. ABDOMEN: Soft. Non-tender. Bowel sounds active. No CVA tenderness. No mass felt. EXTREMITIES: No edema. Full range of motion of all extremities, equal. NEUROLOGIC: No focal deficit. Cranial nerves II through XII are grossly intact. No headache, no double vision or headache. SKIN: Not dry. Intact. Turgor-normal. Incision on abdomen healing well. LYMPHATIC: No palpable lymph nodes/no lymphedema. MUSCULOSKELETAL: Normal joints with no swelling. Muscle tone is normal. LAB REVIEW: 01/10/19 06:35 01/10/19 06:35 01/10/19 06:35: Sodium 132.3 L, Potassium 4.98, Chloride 102.5, Carbon Dioxide 25.7, Anion Gap 9.08, BUN 9.5, Creatinine 0.94, Estimated GFR (MDRD) 77.00, BUN/ Creatinine Ratio 10.10, Glucose 114.3 H, Calcium 8.39 L, Total Bilirubin 0.85, AST 132.3 H, ALT 260.8 H, Alkaline Phosphatase 114.3, Total Protein 6.34, Albumin 3.19 L, Globulin 3.15, Albumin/Globulin Ratio 1.01 01/10/19 06:35: WBC 4.75, RBC 4.63 L, Hgb 13.6 L, Hct 40.0 L, MCV 86.4, MCH 29.4 , MCHC 34.0, RDW Coeff of Nelson 13.1, Plt Count 171, Immature Gran % (Auto) 0.2, Neut % (Auto) 50.3, Lymph % (Auto) 31.8, [place] % (Auto) 12.0 H, Eos % (Auto) 3.2 , Baso % (Auto) 2.5, Immature Gran # (Auto) 0.0, Neut # (Auto) 2.4, Lymph # ( Auto) 1.5, [place] # (Auto) 0.6, Eos # (Auto) 0.2, Baso # (Auto) 0.1 ASSESSMENT: Please see below. 1. Status post cholecystectomy- Improved 2. Generalized weakness-improved 3. Elevated liver function- improved PLAN: 1. Discharge home. 2. CBC and CMP today 3. Followup in office in one week. Plan and coordination of the patient's care discussed in the presence of [employer] Sales Representative and nurse. SCRIBED BY: Alessio REHMAN scribed while in presence of service performed by Dr. Fernández/Yue Carreon APRN on 01/10/19 ([id number])
[2019-01-10] MEDS ORDERED: COZAAR PO ONE (09:20)
--- NOTE | 2019-01-10 13:57 | CM.DICTOOL ---
ADMISSION: 12/25/18 19:09 DISCHARGE: 01/10/19 DATE OF SERVICE: 01/10/19 FINAL DIAGNOSIS CHOLECYSTITIS S/P LAPAROSCOPIC CHOLECYSTECTOMY, 12/22/18, [facility], DR. KEL BRADY IMPAIRED FUNCTIONAL MOBILITY, BALANCE, GAIT AND ENDURANCE, IMPROVED HYPERTENSION, TREATED HYPOKALEMIA, RESOLVED ABRAISED AREAS TO RIGHT AND LEFT BUTTOX, R>L, HEALED YEAST EXCORIATION TO GROIN, RESOLVED CAD CVA, 2013 APPENDECTOMY, OPEN CORONARY ANGIOPLASTY WITH STENT PLACEMENT USES SMOKLESS TOBACCO LAST VITALS Temp Pulse Resp BP Pulse Ox 97.8 F 75 18 143/63 H 98 01/10/19 05:53 01/10/19 05:53 01/10/19 05:53 01/10/19 05:53 01/10/19 05:53 TAKE THESE MEDICATIONS AT HOME Amlodipine Besylate (Norvasc) 5 mg PO BEDTIME PENDING SALE TO [facility] Last Admin: 01/09/19 20:58 Dose: 5 mg Aspirin (Aspirin Ec) 81 mg PO DAILYWM PENDING SALE TO [facility] Last Admin: 01/10/19 08:20 Dose: 81 mg Hydrochlorothiazide (Hydrochlorothiazide) 12.5 mg PO DAILY PENDING SALE TO [facility] Last Admin: 01/10/19 08:19 Dose: 12.5 mg Losartan Potassium (Cozaar) 100 mg PO DAILY PENDING SALE TO [facility] Last Admin: 01/10/19 08:17 Dose: 100 mg Minoxidil (Minoxidil) 2.5 mg PO DAILY PENDING SALE TO [facility] Last Admin: 01/10/19 08:18 Dose: 2.5 mg Potassium Chloride 20 meq PO DAILY ALLERGIES No Known Allergies Allergy (Verified 12/21/18 10:10) NEW PRESCRIPTIONS: Amlodipine Besylate [Norvasc] 5 mg PO BEDTIME #30 tablet 01/10/19 Hydrochlorothiazide 12.5 mg PO DAILY #30 capsule 01/10/19 Losartan Potassium [Cozaar] 100 mg PO DAILY #30 tablet 01/10/19 Minoxidil 2.5 mg PO DAILY #30 tablet 01/10/19 K-Dur 20 meq po daily SMOKING: THE PATIENT USES ORAL TOBACCO. HE HAS BEEN MADE AWARE OF THE ADDED RISK FOR ORAL CANCER, DENTAL DECAY AND CARDIOVASCULAR DISEASE AMONG OTHER RISKS. HE IS RECEPTIVE TO THE TEACHING BUT HAS NOT COMMITTED TO CESSATION. WE WILL CONTINUE TO PROVIDE EDUCATION TOWARD THE BENEFITS OF CESSATION DURING OUTPATIENT VISITS. DISEASE SPECIFIC EDUCATION: RECOVERY FROM [facility] CHOLECYSTECTOMY PHYSICAL THERAPY/OCCUPATIONAL THERAPY HYPERTENSION [facility] HOME MEDICATIONS AND CHANGES MADE DURING THIS STAY NEW PRESCRIPTIONS FOLLOW UP LAB REVIEW: 01/10/19 06:35 01/10/19 06:35 01/10/19 06:35: Sodium 132.3 L, Potassium 4.98, Chloride 102.5, Carbon Dioxide 25.7, Anion Gap 9.08, BUN 9.5, Creatinine 0.94, Estimated GFR (MDRD) 77.00, BUN/ Creatinine Ratio 10.10, Glucose 114.3 H, Calcium 8.39 L, Total Bilirubin 0.85, AST 132.3 H, ALT 260.8 H, Alkaline Phosphatase 114.3, Total Protein 6.34, Albumin 3.19 L, Globulin 3.15, Albumin/Globulin Ratio 1.01 01/10/19 06:35: WBC 4.75, RBC 4.63 L, Hgb 13.6 L, Hct 40.0 L, MCV 86.4, MCH 29.4 , MCHC 34.0, RDW Coeff of Nelson 13.1, Plt Count 171, Immature Gran % (Auto) 0.2, Neut % (Auto) 50.3, Lymph % (Auto) 31.8, [place] % (Auto) 12.0 H, Eos % (Auto) 3.2 , Baso % (Auto) 2.5, Immature Gran # (Auto) 0.0, Neut # (Auto) 2.4, Lymph # ( Auto) 1.5, [place] # (Auto) 0.6, Eos # (Auto) 0.2, Baso # (Auto) 0.1 PLAN: DISCHARGE HOME TODAY, 01/10/[address] FERNÁNDEZ IN HIS OFFICE ON 01/17/19 AT 11 A.M. [facility] WILL PHONE YOU AT HOME TO SCHEDULE AN EVALUATION FOR SERVICES NURSING FOR GENERALIZED ASSESSMENT, MEDICATION COMPLIANCE, V/S; PHYSICAL AND OCCUPATIONAL THERAPY AND A BATH AIDE # [phone] KEL BRADY NEEDED (PER HER INSTRUCTIONS) RESUME YOUR ASPIRIN ONLY DO NOT TAKE YOUR LISINOPRIL (ZESTERIL) NEW PRESCRIPTIONS AMLODIPINE BESYLATE (NORVASC) 5 MG, TAKE ONE TABLET BY MOUTH AT BEDTIME DAILY HYDROCHLOROTHIAZIDE 12.5 MG, TAKE ONE TABLET BY MOUTH DAILY WITH YOUR LOSARTAN ( COZAAR) LOSARTAN POTASSIUM (COZAAR) 100 MG, TAKE ONE TABLET BY MOUTH DAILY WITH YOUR HYDROCHLOROTHIAZIDE MINOXIDIL 2.5 MG, TAKE ONE TABLET BY MOUTH DAILY POTASSIUM CHLORIDE (K-DUR) 20 MEQ, TAKE ONE TABLET BY MOUTH DAILY ACTIVITY GET PLENTY OF REST AT HOME. GRADUALLY INCREASE YOUR ACTIVITY LEVEL ACCORDING TO YOUR TOLERATION SUMMARY THE PATIENT IS ALERT AND ORIENTED X3. HE CURRENTLY RESIDES AT HOME ALONE. HIS TWO DAUGHTERS ARE VERY SUPPORTIVE OF HIS NEEDS. HE DESIRES TO RETURN HOME AT DISCHARGE. HE HAS A LARGE ROLLATOR AND A TALL COMMODE AT HOME. WE HAVE REQUESTED REFERRAL FROM [facility] ([facility]) FOR HOME HEALTH SERVICES: NURSING FOR GENERAL ASSESSMENT, MEDICATION COMPLIANCE; PT/OT AND A BATH AIDE. THE ABRAISED AREAS TO THE PATIENT'S BUTTOCKS AND BOTH KNEES HAVE HEALED VERY WELL. HIS SMALL SURGICAL INCISIONS AND KAM PUNCTURE SITE HAVE ALL HEALED WELL. THE PATIENT TELLS US HIS ABDOMEN NO LONGER IS SORE AND THAT HE HAS NO PAIN AT ALL. HIS APPETITE HAS IMPROVED ALONG WITH HIS HYDRATION STATUS. HE HAS MET TWO OF THE FOUR SHORT TERM PT GOALS AND HAS PARTIALLY MET THE LAST TWO. HIS RESIDENTIAL GOALS HAVE BEEN PARTIALLY MET X2. THE PATIENT HAS MET THE THIRD RESIDENTIAL GOAL. HIS THERAPY WILL BE CONTINUED IN HIS HOME ENVIRONMENT BY [facility] PT/OT. THE PATIENT'S DAUGHTERS HAVE REQUESTED FOR HIM TO HAVE A LARGE SHOWER CHAIR AND CHUX PADS FOR THE BED AND CHAIR. MR. VALDIVIA IS NOT INCONTINENT, BUT ON OCCASION HAS SPILLED HIS URINAL. WE HAVE REQUESTED CASE MANAGEMENT DETERMINE IF HIS INSURANCE CARRIER WILL COVER THESE ITEMS. IF NOT, THEY WILL PROVIDE PLACES WHERE THEY CAN BE PURCHASED. BOTH THE PATIENT AND HIS DAUGHTERS ARE AWARE AND AGREEABLE FOR TODAY'S DISCHARGE PLANS. WE WILL FOLLOW MR. VALDIVIA THROUGH THE OFFICE. CURRENT CODE STATUS FULL CODE ANNIKA SHEIKH APRN TODD FERNÁNDEZ M.D.
--- NOTE | 2019-01-11 10:55 | PN ---
DATE OF SERVICE: 01/10/19 SUBJECTIVE: The patient was seen and examined with the nurse practitioner. The patient's condition is stable. His functional capacity has improved. Status post left cholecystectomy. Cardiovascular status is stable. TIME SPENT: More than 30 minutes. Plan and coordination of the patient's care discussed in the presence of nurse. MIKE
--- NOTE | 2019-01-11 13:22 | DS ---
DATE OF SERVICE: 01/10/19 DATE OF SERVICE: 01/10/19 FINAL DIAGNOSIS: CHOLECYSTITIS S/P LAPAROSCOPIC CHOLECYSTECTOMY, 12/22/18, [facility], DR. KLE DHILLON IMPAIRED FUNCTIONAL MOBILITY, BALANCE, GAIT AND ENDURANCE, IMPROVED HYPERTENSION, TREATED HYPOKALEMIA, RESOLVED ABRAISED AREAS TO RIGHT AND LEFT BUTTOX, R>L, HEALED YEAST EXCORIATION TO GROIN, RESOLVED CAD CVA, 2013 APPENDECTOMY, OPEN CORONARY ANGIOPLASTY WITH STENT PLACEMENT USES SMOKLESS TOBACCO LAST VITALS: Temp Pulse Resp BP Pulse Ox 97.8 F 75 18 143/63 H 98 01/10/19 05:53 01/10/19 05:53 01/10/19 05:53 01/10/19 05:53 01/10/19 05:53 DISCHARGE INSTRUCTION: DISCHARGE HOME TODAY, 01/10/19. RETURN TO SEE DR. FERNÁNDEZ IN HIS OFFICE ON 01/17/19 AT [address] [facility] ([facility]) WILL PHONE YOU AT HOME TO SCHEDULE AN EVALUATION FOR SERVICES NURSING FOR GENERALIZED ASSESSMENT, MEDICATION COMPLIANCE, V/S; PHYSICAL AND OCCUPATIONAL THERAPY AND A BATH AIDE # [phone]. FOLLOW UP WITH DR. KEL DHILLON NEEDED (PER HER INSTRUCTIONS). RESUME YOUR ASPIRIN ONLY. DO NOT TAKE YOUR LISINOPRIL (ZESTERIL) TAKE THESE MEDICATIONS AT HOME: Amlodipine Besylate (Norvasc) 5 mg PO BEDTIME JERAMIE Aspirin (Aspirin Ec) 81 mg PO DAILYWM JERAMIE Hydrochlorothiazide (Hydrochlorothiazide) 12.5 mg PO DAILY JERAMIE Losartan Potassium (Cozaar) 100 mg PO DAILY JERAMIE Minoxidil (Minoxidil) 2.5 mg PO DAILY JERAMIE Potassium Chloride 20 meq PO DAILY ALLERGIES: No Known Allergies Allergy (Verified 12/21/18 10:10) NEW PRESCRIPTIONS: Amlodipine Besylate [Norvasc] 5 mg PO BEDTIME #30 tablet 01/10/19 Hydrochlorothiazide 12.5 mg PO DAILY #30 capsule 01/10/19 Losartan Potassium [Cozaar] 100 mg PO DAILY #30 tablet 01/10/19 Minoxidil 2.5 mg PO DAILY #30 tablet 01/10/19 K-Dur 20 meq po daily SMOKING: THE PATIENT USES ORAL TOBACCO. HE HAS BEEN MADE AWARE OF THE ADDED RISK FOR ORAL CANCER, DENTAL DECAY AND CARDIOVASCULAR DISEASE AMONG OTHER RISKS. HE IS RECEPTIVE TO THE TEACHING BUT HAS NOT COMMITTED TO CESSATION. WE WILL CONTINUE TO PROVIDE EDUCATION TOWARD THE BENEFITS OF CESSATION DURING OUTPATIENT VISITS. DISEASE SPECIFIC EDUCATION: RECOVERY FROM [facility] CHOLECYSTECTOMY PHYSICAL THERAPY/OCCUPATIONAL THERAPY HYPERTENSION [facility] HOME MEDICATIONS AND CHANGES MADE DURING THIS STAY NEW PRESCRIPTIONS FOLLOW UP ACTIVITY: GET PLENTY OF REST AT HOME. GRADUALLY INCREASE YOUR ACTIVITY LEVEL ACCORDING TO YOUR TOLERATION HOSPITAL COURSE: This is a 78 year old white male who was brought to the hospital for physical and occupational therapy after undergoing cholecystomy at [facility] with Kel Dhillon. He had cholecystitis. He was on IV antibiotics and had some hypokalemia, abrasions from a recent fall. He needed the physical and occupational therapy to improve with his weakness following surgery. Initially after being admitted his labs were normal then his liver functions started to rise. We followed steadily. I did climb for a couple days then started to go down on it's own. He was not on any statin therapy so there was no need to hold that. We did do a Hepatitis panel which was negative. He was hypokalemic on admission and we started him on Potassium 20meq daily and this has since resolved. He did have some elevated blood pressure for which we changed his blood pressure medications somewhat. We put him on Norvasc 5mg at bedtime, Cozaar 100mg daily with Hydrochlorothiazide 12.5 as well as Minoxidil 2.5mg daily. He is rather noncompliant as far as followup in the office due to his immobility he does not get out of the house much. We have discussed the importance of taking his medication and followup with us regularly. We did do a ultrasound of his liver due to the liver enzymes and it was normal. Kel Dhillon contacted and consulted regarding the liver enzymes. She thought that it was due to the gangrenous condition of his gallbladder and inflammation residual from that so again at this point on day of discharge his liver enzymes were normal. Blood pressure has been well controlled 135 to 140. He has been up and about with the use of a walker. 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 His abrasions have resolved. We did do Bactroban for the first 5 days or so to the incisions on his abdomen as well as the abrasions on his knees. The abrasions have since resolved. The incision on his abdomen from the laparoscopy are healing well. He did have some yeast in his groin area which is also resolved with oral Diflucan and Nystatin. We will followup with him next week in the office. TIME SPENT: More than 60 minutes. MIKE
--- NOTE | 2019-01-12 12:51 | PN ---
CODING FOR BILLING 12/25/18 INITIAL ASSESSMENT - LEVEL 5 12/26/18 LEVEL 3 TO 4 12/27/18 LEVEL 3 TO 4 12/28/18 LEVEL 3 TO 4 12/29/18 LEVEL 3 TO 4 12/30/18 LEVEL 2 12/31/18 LEVEL 2 01/01/19 LEVEL 2 01/02/19 LEVEL 2 01/03/19 LEVEL 2 01/04/19 LEVEL 2 01/05/19 LEVEL 2 01/06/19 LEVEL 2 01/07/19 LEVEL 2 01/08/19 LEVEL 2 01/09/19 LEVEL 2 01/10/19 DISCHARGE -- EXTENSIVE MTDD
== END 2019-01-10 15:10 | disposition home or self-care (01) | DRG 93 ==
LOC: EEVIPCON 19:09 → MEDSURG B 19:09
PROVIDERS: ADMIT Internal Medicine; ATTEND Internal Medicine
DX: R26.9 Unspecified abnormalities of gait and mobility (principal); I10 Essential (primary) hypertension; E87.6 Hypokalemia; S30.810A Abrasion of lower back and pelvis, initial encounter; S30.811A Abrasion of abdominal wall, initial encounter; I25.10 Atherosclerotic heart disease of native coronary artery without angina pectoris; Z86.73 Personal history of transient ischemic attack (TIA), and cerebral infarction without residual deficits; R53.1 Weakness
CPT/HCPCS: 36415; 80053; 80074; 82150; 83690; 84436; 84443; 85025; 87070; 93005; 93010; 97802